=== PATIENT | female | born 1980 | race Hispanic/Latino ===

== ENCOUNTER 2017-05-02 10:21 | Emergency (ER) | payer OTHER ==
[~2017-05-02] VITALS: Ht 157.5 cm; Wt 81.6 kg
[2017-05-02 10:29] VITALS: BP 136/86
--- NOTE | 2017-05-02 11:09 | ED GI/GU/ABDOMINAL COMPLAINT ---
History of Present Illness General Chief Complaint: Abdominal Pain/Flank Pain Stated Complaint: ABD PAIN X 5 MONTHS ON AND OFF Source: patient, family Exam Limitations: no limitations Vital Signs & Intake/Output Vital Signs & Intake/Output Vital Signs Date Time Temp Pulse Resp B/P B/P Pulse O2 O2 Flow FiO2 Mean Ox Delivery Rate 05/02 1137 98 Room Air 05/02 1029 98.3 66 20 136/86 100 Room Air Allergies Coded Allergies: No Known Allergies (05/02/17) Reconcile Medications Ergocalciferol (Vitamin D2) (Vitamin D2) 50,000 UNIT CAPSULE 1 TAB PO DAILY SUPP (Reported) Loratadine/Pseudoephedrine (Claritin-D 24 Hour Tablet) 10 MG-240 MG TAB.ER.24H 1 TAB PO DAILY PRN ALLERGIES (Reported) Omeprazole 20 MG TABLET.DR 1 TAB PO DAILY gastritis Sertraline HCl 100 MG TABLET 1 TAB PO DAILY DEPRESSION (Reported) Triage Note: PT TO ED C/O UPPER ABD PAIN X A FEW MONTHS. WORSE THE LAST 2 WEEKS. C/O N/D, DENIES VOMITING. DENIES S/S. DENIES . STATES THE PAIN IS WORSE IN THE AFTERNOON. POOR APPETITE. Triage Nurses Notes Reviewed? yes LMP (ages 10-50): unknown ? N Is pt currently ? No Onset: Abrupt Duration: week(s): (3-4), changing over time, continues in ED, getting worse Timing: recent history Quality/Severity: cramping, fullness, moderate Severity Numbers: 10 Location: epigastric, right upper quadrant Radiation: no radiation Activities at Onset: eating Prior Abdominal Problems: similar symptoms Sexually Active: Yes Last Time You Were Sexual: less than 2 months ago No Modifying Factors: none Modifying Factors: Worsens With: eating, movement, palpation. Associated Symptoms: abdominal pain, diarrhea, nausea/vomiting HPI: 36-year-old female with past medical history of depression presents complaining of pain in her upper abdomen. Patient reports symptoms first started a few months ago and went away on their own. Over the past few weeks symptoms have been coming and going intermittently gotten much worse in the past 3 days. Patient reports pain is located in the epigastric area and right upper quadrant. Patient reports that when she wakes up in the morning she feels fine symptoms then began to start in the afternoon and go away by night. Pain is worse with eating and she feels that her appetite has been decreased because of the pain. She has been tolerating fluids. She describes the pain as fullness and cramping that is located in the epigastric area and right upper quadrant. She also reports pain in her back. She reports associated nausea without vomiting and nonbloody diarrhea. He has seen her primary care doctor this ordered blood work was patient did not do. She also prescribed an unknown medicine for her stomach which patient took twice without relief. She has taken any other medications for the pain and she denies any known alleviating factors. No hematemesis, melena, bright red blood per rectum, fevers, chest pain, shortness of breath, hemoptysis, sore throat, alcohol use, drug use or any other associated symptoms. (FRANK ESTEVES PA-C) Past History Travel History Traveled to [place] past 21 day No Medical History Any Pertinent Medical History? see below for history EENT: allergies Psychiatric: depression Surgical History Surgical History: none Psychosocial History What is your primary language Tunisian Tobacco Use: Never used ETOH Use: denies use Illicit Drug Use: denies illicit drug use Family History Hx Contributory? No (FRANK ESTEVES PA-C) Review of Systems Review of Systems Constitutional: Reports: no symptoms. EENTM: Reports: no symptoms. Respiratory: Reports: no symptoms. Cardiovascular: Reports: no symptoms. GI: Reports: see HPI, abdominal pain, bloating, diarrhea, nausea. Genitourinary: Reports: no symptoms. Musculoskeletal: Reports: no symptoms. Skin: Reports: no symptoms. Neurological/Psychological: Reports: no symptoms. Hematologic/Endocrine: Reports: no symptoms. Immunologic/Allergic: Reports: no symptoms. All Other Systems: Reviewed and Negative (FRANK ESTEVES PA-C) Physical Exam Physical Exam General Appearance: well developed/nourished, no apparent distress, alert, awake , anxious Head: atraumatic, normal appearance Eyes: Bilateral: normal appearance, PERRL, EOMI, normal inspection. Ears, Nose, Throat, Mouth: hearing grossly normal, moist mucous membrane, Tympanic normal Neck: normal inspection, supple, full range of motion, normal alignment Respiratory: normal breath sounds, chest non-tender, no respiratory distress, lungs clear Cardiovascular: regular rate/rhythm, normal peripheral pulses Peripheral Pulses: 2+ radial (R), 2+ radial (L), 2+ dorsalis pedis (R), 2+ dorsalis pedis (L) Gastrointestinal: normal bowel sounds, soft, no organomegaly, tenderness (ruq and epigastric) Back: normal inspection, normal range of motion, no vertebral tenderness Extremities: normal range of motion Neurologic/Psych: no motor/sensory deficits, awake, alert, oriented x 3, normal gait, normal mood/affect Skin: intact, normal color, warm/dry Core Measures ACS in differential dx? No Severe Sepsis Present: No Septic Shock Present: No (LINN GOSS,FRANK) Progress Differential Diagnosis: biliary colic, cholecystitis, ectopic , gastritis, hepatitis, inflamm bowel dis, kidney stone, pancreatitis, peptic ulcer, PUD/GERD, perforated viscous, SBO, UTI/pyelo Plan of Care: Orders Procedure Date/time Status URINE 05/02 111 Complete URINALYSIS 05/02 1118 Complete LIPASE 05/02 1118 Complete C-REACTIVE PROTEIN 05/02 1118 Complete COMPREHENSIVE METABOLIC PANEL 05/02 1118 Complete CBC WITHOUT DIFFERENTIAL 05/02 1118 Complete AMYLASE 05/02 111 Complete Laboratory Tests 05/02/17 1223: Urine Color YEL, Urine Clarity CLEAR, Urine pH 6.0, Ur Specific [place] 1.010, Urine Protein NEG, Urine Ketones NEG, Urine Nitrite NEG, Urine Bilirubin NEG, Urine Urobilinogen 0.2, Ur Leukocyte Esterase NEG, Ur Microscopic SEDIMENT EXAMINED, Urine RBC 10-15 H, Urine WBC 1-3 H, Ur Epithelial Cells FEW, Urine Hemoglobin MOD H, Urine Glucose NEG, Urine Test NEGATIVE 05/02/17 1132: Anion Gap 13, Estimated GFR > 60, BUN/Creatinine Ratio 16.0, Glucose 95, Calcium 9.4, Total Bilirubin 0.7, AST 22, ALT 29, Alkaline Phosphatase 69, C-Reactive Prot, Quant 0.9, Total Protein 7.8, Albumin 4.5, Globulin 3.3, Albumin/Globulin Ratio 1.4, Amylase 50, Lipase 71, CBC w Diff NO MAN DIFF REQ, RBC 5.07, MCV 80.1 L, MCH 26.2 L, RDW 13.1, MPV 7.9, Gran % 79.3 H, Lymphocytes % 14.3 L, Monocytes % 5.0, Eosinophils % 1.3, Basophils % 0.1, Absolute Granulocytes 9.0 H, Absolute Lymphocytes 1.6, Absolute Monocytes 0.6, Absolute Eosinophils 0.2, Absolute Basophils 0, PUBS MCHC 32.8 L 11:25 AM: Patient seen and evaluated. She has pain with palpation in the epigastric area and right upper quadrant. Ultrasound is currently not here she will have a CT scan with contrast of the abdomen to rule out gallstones, cholecystitis or pancreatitis. We'll also get basic blood work urinary . Patient will be given a liter normal saline GI cocktail and IV Protonix. 12:15 PM: Patient is feeling much better after GI cocktail IV fluids and IV Protonix. This suggests a acid reflux or gastritis etiology. We'll follow up on blood work and CT of the abdomen. His lungs are to comes back normal patient will be a little be discharged home with omeprazole. 1:45 PM: CT of the abdomen with contrast shows gallstones but no evidence of cholecystitis.. No signs of choledocholithiasis. LFTs are within normal limits. Alkaline phosphatase is within normal limits. Afebrile and currently asymptomatic. She denies any current abdominal pain. Her right upper quadrant is currently nontender to palpation she is afebrile. Patient will be given a referral to a general surgeon for further evaluation. She'll be given a prescription for omeprazole to use as needed for acid reflux/gastritis. Discussed all results of today's visit with patient. Patient is in agreement with the plan. (LINN GOSS,FRANK) Diagnostic Imaging: Viewed by Me: CT Scan. Initial ED EKG: none Comments: PATIENT: KRISTOPHER ANG PRESENT AGE: 36 PATIENT ACCOUNT NO: [id number] : 80 LOCATION: [facility] ORDERING PHYSICIAN: FRANK ESTEVES PA-C SERVICE DATE: 05/02/17 EXAM TYPE: CAT - CT ABD W IV CONTRAST EXAMINATION: CT ABDOMEN WITH CONTRAST CLINICAL INFORMATION: CHOLECYSTITIS, STONES, PANCREATITIS. EPIGASTRIC AND RUQ PAIN< COMPARISON: None. TECHNIQUE: Multidetector volumetric imaging was performed from the lung bases to the iliac crests following the uneventful administration of: Oral contrast: No Intravenous contrast: 95 cc Optiray 320 Sagittal and coronal reformatted images were obtained on the technologist workstation. FINDINGS: LUNG BASES: The visualized lung bases are unremarkable. LIVER, GALLBLADDER, AND BILIARY TREE: Liver may be subtly hypoattenuating relative to the spleen can be seen in the setting of diffuse hepatic steatosis. No focal liver lesion seen. There are multiple hyperdensities seen in the posterior aspect of the fundus of the gallbladder, more likely tiny stones than gallbladder wall calcification. The common bile duct is prominent, 6 mm in diameter but not frankly dilated. No definite choledocholithiasis. No intrahepatic biliary ductal dilatation. PANCREAS: Normal; no mass or surrounding fluid. SPLEEN: Normal size. No focal lesion. ADRENAL GLANDS: Normal; no mass. KIDNEYS AND URETERS: The kidneys are normal in size, shape, and attenuation. No hydronephrosis, hydroureter, or calculi. GASTROINTESTINAL TRACT: Stomach and small bowel non-dilated. No colonic wall thickening or pericolonic inflammatory changes. ABDOMINAL WALL: Small fat-containing umbilical hernia. LYMPHOVASCULAR STRUCTURES: No lymphadenopathy. The aorta is unremarkable. OSSEOUS STRUCTURES: No acute or suspicious osseous abnormality. IMPRESSION: Likely gallstone seen within a moderately distended gallbladder. No pericholecystic fluid to suggest acute cholecystitis. The common bile duct is prominent, up to 6 mm in diameter but not frankly dilated. No definite choledocholithiasis. No intrahepatic biliary ductal dilatation. If there is evidence of biliary obstruction by liver function tests, consider further evaluation with MRCP or ERCP. Normal appearance of the pancreas. The pancreas can have a normal CT appearance in cases of mild pancreatitis by serum enzymes. Possible diffuse hepatic steatosis. DICTATED BY: ERNESTINA MOCK MD DATE/TIME DICTATED:05/02/171336 BAD CLOTH CHECKER:BRENNAN DATE/TIME TRANSCRIBED:05/02/171336 CONFIDENTIAL, DO NOT COPY WITHOUT APPROPRIATE AUTHORIZATION. <Electronically signed in Other Vendor System> SIGNED BY: ERNESTINA MOCK MD [id number] (FRANK ESTEVES PA-C) Departure Departure Disposition: HOME OR SELF CARE Condition: Stable Clinical Impression Primary Impression: Abdominal pain Qualifiers: Abdominal location: right upper quadrant Qualified Code: R10.11 - Right upper quadrant pain Secondary Impressions: Cholelithiases Qualifiers: Cholelithiasis location: gallbladder Cholecystitis presence: without cholecystitis Biliary obstruction: without biliary obstruction Qualified Code: K80.20 - Calculus of gallbladder without cholecystitis without obstruction Referrals: PAT BORDEN,DEEP Herzog UNKNOWN (PCP/Family) Additional Instructions: Rest and drink plenty of fluids. Use omeprazole as directed. Avoid spicy foods , alcohol, caffeine, large meals, and greasy fatty foods. Make a follow-up for with your primary care doctor and a general surgeon for further evaluation of gallstones. Return to the emergency department with worsening pain, fever, unable tolerate fluids or any other concerns. Review of results of today's visit with your primary care doctor. Please go over all results of today's visit with your primary care doctor. Contact your primary care doctor to let them know you were here in the emergency room. There may be nonspecific findings which may not be related to your visit today here in the emergency room but may require further evaluation and chronic monitoring by your primary care doctor. If you had a laceration today the chance of foreign body always remains. You should follow-up with your primary care doctor for recheck in 3-5 days for a wound check. If you had an x-ray done there is a chance that a fracture could have been missed on initial read and you should follow-up with your primary care doctor for repeat x-rays if symptoms persist. If your blood pressure was elevated here in the emergency room please have rechecked by her primary care doctor within the next 48 hours by your primary care doctor. If you were prescribed a narcotic here in the emergency room or any type of controlled substances you're not allowed to drive while taking this medication or operate any type of heavy machinery. Narcotics can make you feel lightheaded dizziness nausea and can cause constipation. You may need to metal pickling equipment operator a stool softener. Thank you for choosing [facility] emergency room. Please return to the emergency room immediately if you have any other concerns worsening of symptoms. Departure Forms: Customer Survey General Discharge Information Prescriptions: Current Visit Scripts Omeprazole 1 TAB PO DAILY #30 TAB (FRANK ESTEVES PA-C) PA/MICA PLATE LAYER Co-Sign Statement Statement: ED Attending supervision documentation- [] I saw and evaluated the patient. I have also reviewed all the pertinent lab results and diagnostic results. I agree with the findings and the plan of care as documented in the PA's/MICA PLATE LAYER's documentation. [X] I have reviewed the ED Record and agree with the PA's/MICA PLATE LAYER's documentation. [] Additions or exceptions (if any) to the PAs/MICA PLATE LAYER's note and plan are summarized below: [] (CHRISTOPHER BORDEN,CLARY Jerez)
[2017-05-02 11:52] LABS: ABSOLUTE BASOPHIL COUNT 0 /CUMM (0.0-0.2); ABSOLUTE EOSINOPHIL COUNT 0.2 /CUMM (0.0-0.7); ABSOLUTE LYMPH COUNT 1.6 /CUMM (1.2-3.4); ABSOLUTE MONOCYTE COUNT 0.6 /CUMM (0.10-0.60); BASOPHIL % 0.1 % (0.0-2.0); EOSINOPHIL % 1.3 % (0-5); GRANULOCYTE % 79.3 % (42.2-75.2); HEMATOCRIT 40.6 % (37-47); MEAN CORPUSCULAR HGB 26.2 PG (27.0-31.0); MEAN CORPUSCULAR HGB CONC 32.8 G/DL (33.0-37.0); MEAN CORPUSCULAR VOLUME 80.1 FL (81.0-99.0); MEAN PLATELET VOLUME 7.9 FL (7.4-10.4); PLATELET COUNT 373 /CUMM (130-400); RBC DISTRIBUTION WIDTH 13.1 % (11.5-14.5); RED BLOOD CELL CT 5.07 /CUMM (4.20-5.40); WHITE BLOOD CELL COUNT 11.3 /CUMM (4.8-10.8)
[2017-05-02] MEDS ORDERED: CLARITIN-D 241 EACH PO (13:32)
[2017-05-02] MEDS ORDERED: SERTRALINE HCL100 MG PO (13:32)
[2017-05-02] MEDS ORDERED: VITAMIN D250000 UNIT PO (13:32)
--- NOTE | 2017-05-02 13:44 | CT SCAN REPORT ---
EXAMINATION: CT ABDOMEN WITH CONTRAST CLINICAL INFORMATION: CHOLECYSTITIS, STONES, PANCREATITIS. EPIGASTRIC AND RUQ PAIN< COMPARISON: None. TECHNIQUE: Multidetector volumetric imaging was performed from the lung bases to the iliac crests following the uneventful administration of: Oral contrast: No Intravenous contrast: 95 cc Optiray 320 Sagittal and coronal reformatted images were obtained on the technologist workstation. FINDINGS: LUNG BASES: The visualized lung bases are unremarkable. LIVER, GALLBLADDER, AND BILIARY TREE: Liver may be subtly hypoattenuating relative to the spleen can be seen in the setting of diffuse hepatic steatosis. No focal liver lesion seen. There are multiple hyperdensities seen in the posterior aspect of the fundus of the gallbladder, more likely tiny stones than gallbladder wall calcification. The common bile duct is prominent, 6 mm in diameter but not frankly dilated. No definite choledocholithiasis. No intrahepatic biliary ductal dilatation. PANCREAS: Normal; no mass or surrounding fluid. SPLEEN: Normal size. No focal lesion. ADRENAL GLANDS: Normal; no mass. KIDNEYS AND URETERS: The kidneys are normal in size, shape, and attenuation. No hydronephrosis, hydroureter, or calculi. GASTROINTESTINAL TRACT: Stomach and small bowel non-dilated. No colonic wall thickening or pericolonic inflammatory changes. ABDOMINAL WALL: Small fat-containing umbilical hernia. LYMPHOVASCULAR STRUCTURES: No lymphadenopathy. The aorta is unremarkable. OSSEOUS STRUCTURES: No acute or suspicious osseous abnormality. IMPRESSION: Likely gallstone seen within a moderately distended gallbladder. No pericholecystic fluid to suggest acute cholecystitis. The common bile duct is prominent, up to 6 mm in diameter but not frankly dilated. No definite choledocholithiasis. No intrahepatic biliary ductal dilatation. If there is evidence of biliary obstruction by liver function tests, consider further evaluation with MRCP or ERCP. Normal appearance of the pancreas. The pancreas can have a normal CT appearance in cases of mild pancreatitis by serum enzymes. Possible diffuse hepatic steatosis.
[2017-05-02] MEDS ORDERED: OMEPRAZOLE20 M3 PO (13:53)
== END 2017-05-02 14:00 ==
LOC: ERH 10:21
PROVIDERS: Physician Assistant Medical
DX: K80.20 Calculus of gallbladder without cholecystitis without obstruction (principal)
CPT/HCPCS: 81001; 81025; 96374

== ENCOUNTER 2017-05-08 21:33 | Inpatient (IN) | payer OTHER ==
[~2017-05-08] VITALS: Ht 66 cm; Wt 81.6 kg
[~2017-05-08 21:33] MED LIST: CLARITIN-D 241 EACH PO; OMEPRAZOLE20 M3 PO; SERTRALINE HCL100 MG PO; VITAMIN D250000 UNIT PO
--- NOTE | 2017-05-08 23:16 | ED GI/GU/ABDOMINAL COMPLAINT ---
History of Present Illness General Chief Complaint: Abdominal Pain/Flank Pain Stated Complaint: ABD PAIN Source: patient Exam Limitations: no limitations Vital Signs & Intake/Output Vital Signs & Intake/Output Vital Signs Date Time Temp Pulse Resp B/P B/P Pulse O2 O2 Flow FiO2 Mean Ox Delivery Rate 05/09 1433 98.0 58 20 122/80 98 Room Air 05/09 0414 97.8 68 20 130/96 97 Room Air 05/09 0400 97 Room Air 05/09 0259 98.3 76 20 106/93 98 Room Air 05/08 2310 98 Room Air 05/08 2157 98.0 71 20 122/75 97 Room Air ED Intake and Output 05/09 0000 05/08 1200 Intake Total Output Total Balance Patient 180 lb Weight Weight Reported by Patient Measurement Method Allergies Coded Allergies: No Known Allergies (05/02/17) Reconcile Medications Ergocalciferol (Vitamin D2) (Vitamin D2) 50,000 UNIT CAPSULE 1 TAB PO DAILY SUPP (Reported) Loratadine/Pseudoephedrine (Claritin-D 24 Hour Tablet) 10 MG-240 MG TAB.ER.24H 1 TAB PO DAILY PRN ALLERGIES (Reported) Omeprazole 20 MG TABLET.DR 1 TAB PO DAILY gastritis Sertraline HCl 100 MG TABLET 1 TAB PO DAILY DEPRESSION (Reported) Triage Note: PT FROM HOME C/O GALLSTONE "FLARE UP". PT STATES SHE WAS SEEN HERE ON AND A CT REVEALED GALLSTONES, PT STATES N/V/D X MULTIPLE EPISODES SINCE AND TODAY AROUND 1600 IT BECAME WORSE. Triage Nurses Notes Reviewed? yes ? N Is pt currently ? No Duration: getting worse Quality/Severity: sharpness, severe, stabbing Severity Numbers: 7 Location: epigastric, right upper quadrant Radiation: no radiation Activities at Onset: none HPI: Patient is a 37-year-old female with a past medical history of depression who presents emergency room with concerns of worsening abdominal pain. Patient did present to the emergency room at [facility] on May 02 for similar symptoms where she states that she's had pain on and off to the epigastric and right upper quadrant region for approximately 4-5 months. Patient received blood work in the emergency room with unremarkable findings and CT scan with no acute findings. Patient states that in the past week her symptoms worsened abdominal pain and multiple episodes of nonbloody nonbilious emesis and patient has been unable tolerate anything by mouth the last 24 hours. Denies any NSAID use or alcohol use. (COLLIN ALEXANDER) Past History Travel History Traveled to [place] past 21 day No Medical History Any Pertinent Medical History? see below for history EENT: allergies Renal: GALLSTONES Psychiatric: depression Surgical History Surgical History: none Psychosocial History What is your primary language Bahamian Tobacco Use: Never used ETOH Use: denies use Illicit Drug Use: denies illicit drug use Family History Hx Contributory? No (COLLIN ALEXANDER) Review of Systems Review of Systems Constitutional: Reports: no symptoms. EENTM: Reports: no symptoms. Respiratory: Reports: no symptoms. Cardiovascular: Reports: no symptoms. GI: Reports: see HPI, abdominal pain. Genitourinary: Reports: no symptoms. Musculoskeletal: Reports: no symptoms. Skin: Reports: no symptoms. Neurological/Psychological: Reports: no symptoms. Hematologic/Endocrine: Reports: no symptoms. Immunologic/Allergic: Reports: no symptoms. All Other Systems: Reviewed and Negative (COLLIN ALEXANDER) Physical Exam Physical Exam General Appearance: mild distress Head: atraumatic Eyes: Bilateral: normal appearance, PERRL, EOMI. Ears, Nose, Throat, Mouth: hearing grossly normal Neck: normal inspection, full range of motion Respiratory: normal breath sounds, chest non-tender, no respiratory distress Cardiovascular: regular rate/rhythm Gastrointestinal: normal bowel sounds, soft, tenderness (RUQ/EPIGASTRIC) Back: normal inspection Extremities: normal range of motion Neurologic/Psych: no motor/sensory deficits Core Measures ACS in differential dx? No Severe Sepsis Present: No Septic Shock Present: No (COLLIN ALEXANDER) Progress Differential Diagnosis: AAA, AMI, appendicitis, biliary colic, bowel obstruction , colon cancer, cholecystitis, diverticulitis, ectopic , endometritis, esophageal varices, gastritis, hepatitis, hernia, hemorrhoids, ischemic bowel, inflamm bowel dis, intrauterine , kidney stone, [place] tear, ovarian cyst, ovarian torsion, pancreatitis, PID/cervicitis, peptic ulcer, PUD/ GERD, perforated viscous, SBO, threatened AB, UTI/pyelo Plan of Care: Orders Procedure Date/time Status Nothing by Mouth 05/10 B Active PROTHROMBIN TIME 05/10 600 Active LIPASE 05/10 600 Active HEPATIC FUNCTION PANEL 05/10 600 Active CBC WITHOUT DIFFERENTIAL 05/10 600 Active BASIC ELECTROLYTES PLUS BUN&CR 07/12 0600 Active Clear Liquid Diet 05/09 L Complete Full Liquid Diet 05/09 D Complete Nothing by Mouth 05/09 B Complete PROTHROMBIN TIME 05/09 0835 Complete HEPATIC FUNCTION PANEL 05/09 0835 Complete LIPID PANEL 05/09 06 Complete LIPASE 05/09 06 Complete CBC WITHOUT DIFFERENTIAL 05/09 06 Complete BASIC ELECTROLYTES PLUS BUN&CR 05/09 0600 Complete AMYLASE 05/09 0600 Complete Vital Signs 05/09 0422 Active Teach/Educate 05/09 042 Active Pain Treatment and Response 05/09 042 Active Nutritional Intake, Monitor 05/09 042 Active Isolation 05/09 042 Active Intake & Output 05/09 042 Active Patient Care Conference 05/09 042 Active Activity/Ambulation 05/09 0422 Active Pathway - chart 05/09 0259 Active Patient Data 05/09 0259 Active Code Status 05/09 0259 Active Patient Data 05/09 0228 Active Admit to inpatient 05/09 0128 Active House Staff 05/09 UNK Active VTE Mechanical Prophylaxis 05/09 UNK Active Vital Signs 05/09 UNK Active Nursing Misc 05/09 UNK Active MRI-ABDOMEN 05/09 UNK Active LIPASE 05/08 2315 Complete DIRECT BILIRUBIN 05/08 2315 Complete COMPREHENSIVE METABOLIC PANEL 05/08 2315 Complete CBC WITHOUT DIFFERENTIAL 05/08 2315 Complete AMYLASE 05/08 2315 Complete Intake & Output 05/08 2310 Active URINE 05/08 2228 Complete URINALYSIS 05/08 2228 Complete Current Medications Sig/Willem Start time Last Medication Dose Stop Time Status Admin Acetaminophen 1,000 MG Q6P PRN 05/09 1515 AC (Ofirmev) N/A 1 UNIT (No Carrier) Morphine Sulfate 2 MG Q6P PRN 05/09 1330 AC (Morphine) Enoxaparin Sodium 40 MG DAILY 05/09 1000 AC 05/09 (Lovenox) 1105 Lactated Ringer's 1,000 ML .Q10H 05/09 0845 AC 05/09 (Lactated Ringers) 05/10 0800 1124 Laboratory Tests 05/09/17 1025: Total Bilirubin 3.0 H, Direct Bilirubin 2.1 H, AST 159 H, ALT 445 H, Alkaline Phosphatase 147 H, Total Protein 6.3, Albumin 3.8, PT 11.3, INR 1.08 05/09/17 0700: Anion Gap 12, Estimated GFR > 60, BUN/Creatinine Ratio 16.0, Triglycerides 85, Cholesterol 153, LDL Cholesterol, Calc 85, HDL Cholesterol 51, Cholesterol/HDL Ratio 3, Amylase 687 H, Lipase 6106 H, CBC w Diff NO MAN DIFF REQ, RBC 4.67, MCV 81.3, MCH 26.6 L, RDW 13.7, MPV 8.1, Gran % 63.9, Lymphocytes % 27.1, Monocytes % 7.3, Eosinophils % 1.3, Basophils % 0.4, Absolute Granulocytes 7.0 H, Absolute Lymphocytes 3.0, Absolute Monocytes 0.8 H, Absolute Eosinophils 0.1 , Absolute Basophils 0, PUBS MCHC 32.7 L 05/08/17 2326: Anion Gap 13, Estimated GFR > 60, BUN/Creatinine Ratio 20.0, Glucose 119 H, Calcium 9.5, Total Bilirubin 2.6 H, Direct Bilirubin 1.8 H, AST 230 H, ALT 572 H, Alkaline Phosphatase 194 H, Total Protein 8.2, Albumin 4.7, Globulin 3.5, Albumin/Globulin Ratio 1.3, Amylase 543 H, Lipase 9721 H, CBC w Diff NO MAN DIFF REQ, RBC 5.06, MCV 80.2 L, MCH 26.0 L, RDW 13.5, MPV 7.9, Gran % 74.2 , Lymphocytes % 17.4 L, Monocytes % 7.0, Eosinophils % 1.2, Basophils % 0.2, Absolute Granulocytes 8.7 H, Absolute Lymphocytes 2.1, Absolute Monocytes 0.8 H, Absolute Eosinophils 0.1, Absolute Basophils 0, PUBS MCHC 32.4 L 05/08/17 2250: Urinalysis MOD H, Urine Color YEL, Urine Clarity HAZY H, Urine pH 6.0, Ur Specific [place] 1.025, Urine Protein TRACE H, Urine Ketones 15 H, Urine Nitrite NEG, Urine Bilirubin NEG@ICTO, Urine Urobilinogen 2.0 H, Ur Leukocyte Esterase NEG, Ur Microscopic SEDIMENT EXAMINED, Urine RBC 1-3, Urine WBC 1-3 H, Ur Epithelial Cells RARE, Urine Hemoglobin MOD H, Urine Glucose NEG, Urine Test NEGATIVE Patient has concerns of gallstone pancreatitis. Patient was afebrile no leukocytosis. Discussed admission with Dr. Clifford who was aware patient was administered prophylactic Unasyn Patient was placed nothing by mouth. After morphine was administered patient had significant resolution of pain. Denies any current nausea after IV Zofran was administered. (ALFRED GOODEN,COLLIN) Diagnostic Imaging: Viewed by Me: CT Scan. Radiology Impression: no acute abnormality Initial ED EKG: none Comments: PATIENT: KRISTOPHER ANG PRESENT AGE: 37 PATIENT ACCOUNT NO: [id number] : 80 LOCATION: ER ORDERING PHYSICIAN: COLLIN GOODEN SERVICE DATE: 05/09/17 EXAM TYPE: CAT - CT ABD & PELVIS W IV CONTRAST EXAMINATION: CT ABDOMEN AND PELVIS WITH CONTRAST CLINICAL INFORMATION: Gallstone pancreatitis COMPARISON: 05/02/2017 TECHNIQUE: Multidetector volumetric imaging was performed of the abdomen and pelvis before and after the IV administration of 95 mL of Optiray 320 intravenous contrast. Sagittal and coronal reformatted images were obtained on the technologist's workstation. DLP: 476 mGy-cm FINDINGS: LUNG BASES: The visualized lung bases are unremarkable. LIVER, GALLBLADDER, AND BILIARY TREE: The liver is normal in size, shape, and attenuation. No focal hepatic lesion or biliary ductal dilatation is present. The gallbladder is normally distended. Gallstones are seen within the gallbladder lumen. No gallbladder wall thickening or adjacent inflammation noted. The common bile duct is prominent, measuring 0.8 cm in diameter. No definite filling defects seen. PANCREAS: Unremarkable. SPLEEN: Unremarkable. ADRENAL GLANDS: Unremarkable. KIDNEYS AND URETERS: The kidneys are normal in size, shape, and attenuation. No hydronephrosis, hydroureter, or calculi seen. No perinephric stranding. BLADDER: Unremarkable. GASTROINTESTINAL TRACT: The stomach and small bowel are unremarkable. No dilated loops of bowel or evidence of obstruction. Normal appendix. No colonic wall thickening or inflammatory change. No free air or free fluid. ABDOMINAL WALL: No significant hernia is appreciated. LYMPH NODES: Normal. VASCULAR: Unremarkable. PELVIC VISCERA: An IUD is in place. No adnexal mass. OSSEOUS STRUCTURES: No acute or suspicious osseous abnormality. IMPRESSION: Cholelithiasis without evidence for acute cholecystitis. There is mild dilatation of the common bile duct without filling defects seen. Unremarkable appearance of the pancreas. DICTATED BY: OMAR BORDEN,LAMONTE DATE/TIME DICTATED:05/09/17201 BILL OF MATERIALS CLERK:BRENNAN DATE/TIME TRANSCRIBED:05/09/17201 (COLLIN ALEXANDER) Departure Departure Disposition: STILL A PATIENT Condition: Guarded Clinical Impression Primary Impression: Gallstone pancreatitis Referrals: UNKNOWN (PCP/Family) Departure Forms: Customer Survey General Discharge Information Admission Note Spoke With: TOSHA HARVEY MD Documentation of Exam: Documentation of any treatments & extenuating circumstances including Concerns Regarding Discharge (functional status, medication knowledge or non-compliance, living conditions, etc.) that warrant an admission rather than observation: [ Discussed admission with who agrees with general medicine admission for concerns of gallstone pancreatitis which patient requires repeat labs, IV pain management IV antinausea medication, right upper quadrant ultrasound, gastroenterology consultation surgical consultation. Outpatient treatment at this time would be medically harmful] (COLLIN ALEXANDER) PA/BREAKER OFF Co-Sign Statement Statement: ED Attending supervision documentation- [] I saw and evaluated the patient. I have also reviewed all the pertinent lab results and diagnostic results. I agree with the findings and the plan of care as documented in the PA's/BREAKER OFF's documentation. [X] I have reviewed the ED Record and agree with the PA's/BREAKER OFF's documentation. [] Additions or exceptions (if any) to the PAs/BREAKER OFF's note and plan are summarized below: [] (DINA BORDEN,ARPIT)
[2017-05-08 23:32] LABS: ABSOLUTE BASOPHIL COUNT 0 /CUMM (0.0-0.2); ABSOLUTE EOSINOPHIL COUNT 0.1 /CUMM (0.0-0.7); ABSOLUTE GRANULOCYTE CT 8.7 /CUMM (1.4-6.5); ABSOLUTE LYMPH COUNT 2.1 /CUMM (1.2-3.4); ABSOLUTE MONOCYTE COUNT 0.8 /CUMM (0.10-0.60); BASOPHIL % 0.2 % (0.0-2.0); EOSINOPHIL % 1.2 % (0-5); GRANULOCYTE % 74.2 % (42.2-75.2); HEMATOCRIT 40.6 % (37-47); MEAN CORPUSCULAR HGB CONC 32.4 G/DL (33.0-37.0); MEAN CORPUSCULAR VOLUME 80.2 FL (81.0-99.0); MEAN PLATELET VOLUME 7.9 FL (7.4-10.4); PLATELET COUNT 409 /CUMM (130-400); RBC DISTRIBUTION WIDTH 13.5 % (11.5-14.5); RED BLOOD CELL CT 5.06 /CUMM (4.20-5.40); WHITE BLOOD CELL COUNT 11.8 /CUMM (4.8-10.8)
--- NOTE | 2017-05-09 02:07 | CT SCAN REPORT ---
EXAMINATION: CT ABDOMEN AND PELVIS WITH CONTRAST CLINICAL INFORMATION: Gallstone pancreatitis COMPARISON: 05/02/2017 TECHNIQUE: Multidetector volumetric imaging was performed of the abdomen and pelvis before and after the IV administration of 95 mL of Optiray 320 intravenous contrast. Sagittal and coronal reformatted images were obtained on the technologist's workstation. DLP: 476 mGy-cm FINDINGS: LUNG BASES: The visualized lung bases are unremarkable. LIVER, GALLBLADDER, AND BILIARY TREE: The liver is normal in size, shape, and attenuation. No focal hepatic lesion or biliary ductal dilatation is present. The gallbladder is normally distended. Gallstones are seen within the gallbladder lumen. No gallbladder wall thickening or adjacent inflammation noted. The common bile duct is prominent, measuring 0.8 cm in diameter. No definite filling defects seen. PANCREAS: Unremarkable. SPLEEN: Unremarkable. ADRENAL GLANDS: Unremarkable. KIDNEYS AND URETERS: The kidneys are normal in size, shape, and attenuation. No hydronephrosis, hydroureter, or calculi seen. No perinephric stranding. BLADDER: Unremarkable. GASTROINTESTINAL TRACT: The stomach and small bowel are unremarkable. No dilated loops of bowel or evidence of obstruction. Normal appendix. No colonic wall thickening or inflammatory change. No free air or free fluid. ABDOMINAL WALL: No significant hernia is appreciated. LYMPH NODES: Normal. VASCULAR: Unremarkable. PELVIC VISCERA: An IUD is in place. No adnexal mass. OSSEOUS STRUCTURES: No acute or suspicious osseous abnormality. IMPRESSION: Cholelithiasis without evidence for acute cholecystitis. There is mild dilatation of the common bile duct without filling defects seen. Unremarkable appearance of the pancreas.
--- NOTE | 2017-05-09 02:19 | History & Physical ---
SHIVA BORDEN,[facility] 05/09/17 0218: General Information and HPI MD Statement: I have seen and personally examined KRISTOPHER PITT and documented this H&P. The patient is a 37 year old F who presented with a patient stated chief complaint of [abdominal pain]. Source of Information: patient Exam Limitations: no limitations History of Present Illness: The patient is a 37-year-old female with past medical history of gastritis, depression, who was last seen in May 02 for similar complaints. At that time the abdominal CT showed a likely gallstone. She was prescribed omeprazole during that last ED visit. The patient states she has had 4-5 months of epigastric and right flank pain. She states today she experienced a sharp pain in her epigastric and right upper quadrant from 4 PM at work. She states the pain was a 10 out of 10 at the time and is now currently 4 out of 10. She states that the pain began in the epigastric region and radiated down to her right upper quadrant. She took some ibuprofen without any improvement. She was then brought into the hospital by her . She states the pain prevents her from taking full breaths. She has also noticed some chills during this time. She states she has had 2 episodes vomiting today. Her last meal was lunch yesterday, when she had eaten a Caesar salad. She denies any fevers, chest pain , or dysuria. Allergies/Medications Allergies: Coded Allergies: No Known Allergies (05/02/17) Home Med list Ergocalciferol (Vitamin D2) (Vitamin D2) 50,000 UNIT CAPSULE 1 TAB PO DAILY SUPP (Reported) Loratadine/Pseudoephedrine (Claritin-D 24 Hour Tablet) 10 MG-240 MG TAB.ER.24H 1 TAB PO DAILY PRN ALLERGIES (Reported) Omeprazole 20 MG TABLET.DR 1 TAB PO DAILY gastritis Sertraline HCl 100 MG TABLET 1 TAB PO DAILY DEPRESSION (Reported) Past History Travel History Traveled to [place] past 21 day No Medical History EENT: allergies Gastrointestinal: gallstone Psychiatric: depression Surgical History Surgical History: Past Family/Social History Psychosocial History Smoking Status: Never Smoked ETOH Use: denies use Illicit Drug Use: denies illicit drug use Review of Systems Review of Systems Constitutional: Reports: chills. Denies: fever. Cardiovascular: Denies: chest pain. Respiratory: Denies: short of breath. GI: Reports: abdominal pain. Genitourinary: Denies: dysuria. Exam & Diagnostic Data Last 24 Hrs of Vital Signs/I&O Vital Signs Date Time Temp Pulse Resp B/P B/P Pulse O2 O2 Flow FiO2 Mean Ox Delivery Rate 05/09 0414 97.8 68 20 130/96 97 Room Air 05/09 0259 98.3 76 20 106/93 98 Room Air 05/08 2310 98 Room Air 05/08 2157 98.0 71 20 122/75 97 Room Air Intake & Output 05/09 0800 05/09 0000 05/08 1600 Intake Total Output Total Balance Patient 180 lb Weight Weight Reported by Patient Measurement Method Physical Exam General Appearance Alert, Oriented X3, Cooperative, Mild Distress Skin no jaundice HEENT Atraumatic, PERRLA, EOMI Neck Supple, no treacheal deviation, tenderness or lymphadenopathy Cardiovascular Regular Rate, Normal S1, Normal S2, No Murmurs Lungs Clear to Auscultation, Normal Air Movement Abdomen Normal Bowel Sounds, Soft, muprhy sign +, no epigastric tenderness, patient states that the pain usually radiates around her epigastric region into her right upper quadrant Neurological Normal Speech Extremities No Edema, Normal Pulses Diagnostic Data Other Results CT ABD: IMPRESSION: Cholelithiasis without evidence for acute cholecystitis. There is mild dilatation of the common bile duct without filling defects seen. Unremarkable appearance of the pancreas. Assessment/Plan Assessment: The patient is a 37-year-old female with past medical history of gastritis, depression, who presents for epigastric and right upper quadrant pain found to have gallstones CT and elevated AST 230, ALT 572, ALP 194, amylase 543, and lipase 9721 most likely pancreatitis secondary to gallstone. As Ranked By This Provider Problem List: 1. Pancreatitis Assessment/Plan The patient is a 37-year-old female with past medical history of gastritis, depression, who presents for epigastric and right upper quadrant pain found to have gallstones CT and elevated AST 230, ALT 572, ALP 194, amylase 543, and lipase 9721 most likely pancreatitis secondary to gallstone. She has been complaining of this pain for the past 4-5 months. We will hold her NPO and begin pain management. We will recheck her CPK, lipase, amylase. We will order right upper quadrant ultrasound and place a GI consult. Other causes of her pancreatitis could be idiopathic, autoimmune, or her medicines. -f/u att note -f/u cbc, lipid panel -f/u lipase, amylase, -f/u RUQ US -f/u GI Consult 2. DVT prophylaxis Assessment/Plan LOVENOX 3. Full code status Assessment/Plan FULL CODE Core Measures/Miscellaneous Acute Coronary Syndrome ACS Diagnosis: No Cerebrovascular Accident CVA/TIA Diagnosis: No Congestive Heart Failure CHF Diagnosis: No VTE (View Protocol) VTE Risk Factors: [facility] prophylaxis d/t: No contraindications No VTE Pharm Prophylaxis d/t: No contraindications VTE Diagnosis: No VTE Type: NONE VTE Confirmed by (Test): NONE Sepsis (View Protocol) Severe Sepsis Present: No Septic Shock Septic Shock Present: No Miscellaneous Documentation Attending Case Discussed With: TOSHA HARVEY MD Primary Care Physician: UNKNOWN Level of Patient Care: General Medicine TOSHA HARVEY 05/09/17 0444: Attending MD Review Statement Attending Statement Attending MD Statement: examined this patient, discuss w/resident/PA/DIRECTOR NEWS, agreed w/resident/PA/DIRECTOR NEWS, discussed with family, reviewed EMR data (avail), reviewed images, amended to note Attending Assessment/Plan: CC: Abdominal pain PMH: None Patient came to ER with very severe sharp epigastric pain started today, nonradiating, associated with nausea and a few episodes of vomiting. Patient had similar but less severe pain on May 02 when she came to ER and was investigated with CT scan. Last few years patient has been getting on and off pain in the right upper quadrant, usually relieving on by itself, patient not sure about association with the fatty food Vitals: Afebrile, HR 70s, RR 20, blood pressure 122/75, saturating well on room air. On exam: A O 3, cooperative, no acute distress, neck supple, JVD normal, no lymphadenopathy, mucosa dry, no focal neurological deficit, no dependent edema, no obvious skin rashes or inflammation CVS: S1-S2, RRR. RS: Clear to auscultate bilaterally. Abdomen: Epigastric tenderness, Dia's sign positive, no guarding or rigidity, bowel sounds present. Labs: WBC 11.8, hemoglobin 13.2, hematocrit 40.6, platelet 409, BUN 12, glucose 119, total bilirubin 2.6, direct bilirubin 1.8, AST 2:30, ALT 572, alkaline phosphatase 194, lipase 9721 UA: Trace protein, 15 ketones, urobilinogen CT abdomen and pelvis Cholelithiasis without evidence for acute cholecystitis. There is mild dilatation of the common bile duct without filling defects seen. Unremarkable appearance of the pancreas. A and P 37-year-old female with past medical history suggestive of recurrent abdominal pain probably biliary colic versus GERD, came to ER for worsening epigastric pain. Patient has epigastric tenderness, Dia's sign positive, hemodynamically stable. Labs show elevated lipase suggestive of pancreatitis, also her bilirubin , AST, ALT, alkaline phosphatase is significantly elevated as compared to May 02 labs. She has mild leukocytosis. CT abdomen does not show any evidence of cholecystitis. Drinks alcohol very socially, last drink 3 weeks back. She does not have any significant fever or leukocytosis we will hold off antibiotics for now as no evidence of cholangitis + Gallstone pancreatitis + Cholelithiasis rule out choledocholithiasis - Admit to general medicine - Continue aggressive hydration with normal saline already contacted at 200 mL per hour - Nothing by mouth except ice chips - Obtain lipid panel - Right upper quadrant ultrasound - GI consult in a.m. ?ERCP - Adequate pain control - Patient would need cholecystectomy before discharge - Trend CBC BMP and LFT in a.m. - DVT prophylaxis DEYANIRA BORDEN,[facility] 05/09/17 0515: Core Measures/Miscellaneous Acute Coronary Syndrome ACS Diagnosis: No Cerebrovascular Accident CVA/TIA Diagnosis: No Congestive Heart Failure CHF Diagnosis: No VTE (View Protocol) VTE Risk Factors: Acute medical illness [facility] VTE prophylaxis d/t: No contraindications No VTE Pharm Prophylaxis d/t: No contraindications VTE Diagnosis: No VTE Type: NONE VTE Confirmed by (Test): NONE Miscellaneous Documentation Attending Case Discussed With: TOSHA HARVEY MD Primary Care Physician: UNKNOWN Patient sees these Specialists NA Level of Patient Care: General Medicine Resident Review Statement Resident Statement: examined this patient, discussed with internet designer, agreed with internet designer Other Findings: Ms Pitt is a pleasant 37-year-old female past medical history of depression who presented to the emergency department complaining of abdominal and flank pain. Patient states she was last here on Monday (May 02) experiencing abdominal pain. States that today prior to admission while she was at work she expressed a 10 out of 10 epigastric pain. Described as sharp and which ran in duration from 3 to 4 PM. She subsequently went home and due to lack of resolution to her symptoms came into the emergency department. She states over the last 48 hours she's had a decrease in appetite and had eating very light foods such as salads. Patient states that on Monday she felt that her symptoms were getting worse. She did endorse two episodes of nonbloody non-bilious emesis. She is a nonsmoker she does not use alcohol regularly, she does not use any recreational drugs. Patient also endorses changes to her urinary habits. She states that she noted some dark yellow urine. R: She denied any fever although endorsed chills and nausea. She denied any chest pain or chest discomfort or shortness of breath. E: E Temperature 98.0, pulse 71, respirations 20, blood pressure 122/75. Saturating 97% on room air. HEENT: extraocular motion intact, no nystagmus. Nose is atraumatic. External auditory canal and Tympanic membranes clear. Pharynx normal. No swelling or edema. Neck: Supple, no lymphadenopathy, normal range of motion without pain or tenderness Skin:WNL. No signs of Jaundice. Cardiovascular: Regular rate and rhythm no murmurs rubs or gallops. Respiratory: Chest nontender. No respiratory distress. Abdomen: Soft, nontender nondistended, no appreciable organomegaly. Normal bowel sounds. No ascites, no rebound or guarding. Dia sign + Extremity: No edema, no calf tenderness to palpation, normal and equal pulses. No crepitus or fluctuation. Neuro:AOX 3. CN 2 - 12 intact. L: Labs were notable for white count at 11.8. Platelet count 49. Total bilirubin 2.6, direct bilirubin 1.8, AST 230, ALT 572 alkaline phosphatase 194. I: IMPRESSION: Cholelithiasis without evidence for acute cholecystitis. There is mild dilatation of the common bile duct without filling defects seen. Unremarkable appearance of the pancreas. A/P: This is a 37-year-old female with previous history of abdominal pain (but no formal diagnosis of pancreatitis) who presented again with worsening abdominal pain, du to pancreatitis. We will admit the patient to general medicine hold off on any antibiotics. Elevation in lipase and amylase point towards a diagnosis of pancreatitis, likely from a gallstone. Aggressively hydrate the patient, with lactated Ringer's. A lipid panel has been obtained to assess triglyceride level. Right upper quadrant ultrasound evaluation for any acute intra-hepatic pathology. We'll consult GI in the morning, assess need for ERCP especially in the setting of increasing LFTs. Monitor electrolytes and LFTs. Keep nothing by mouth for now and advance diet as tolerated as patient is clinically more stable. Assess need for cholesytectomy. Inpatient vs Outpatient. Patient is a full code.
[2017-05-09 04:14] VITALS: BP 130/96
--- NOTE | 2017-05-09 04:45 | Admission Certification ---
Admission Certification Certification Statement - As attending physician, I certify that at the time of - admission, based on clinical presentation, severity of - symptoms, need for further diagnostic testing and - therapeutic interventions, and risk of adverse outcomes - without in-hospital treatment, in my clinical assessment, - this patient requires an acute hospital stay for a minimum - of two nights or longer. I have also considered psychsocial - factors such as support system, advanced age, financial - issues, cognitive issues, and failed out-patient treatments, - past re-admission history, safety of patient, and lack of - compliance as applicable. Specific rationale supporting this admission is: Gallstone pancreatitis
--- NOTE | 2017-05-09 07:10 | Cons- Gastroenterology ---
General Information and HPI Consulting Request Date of Consult: 05/09/17 Requested By: TOSHA HARVEY MD Reason for Consult: GS Pancreatitis. Abdominal pain. Abnormal ct scan/US. Abnormal LFTs Source of Information: patient Exam Limitations: no limitations History of Present Illness: Ms. Pitt is a 37 year old female with no significant PMH who presented to last night with complaints of worsening RUQ/mid epigastric pain which she has been having since January. She notes that with eating she will get a sharp mid- epigastric pain which radiates to the RUQ. The pain became more severe over the past week and she came to the ER on May 02 at which point she had unremarkable blood work and a CAT scan that did show a prominent CBD, but was otherwise unremarkable and she was subsequently sent home. She continued to have intermittent right upper quadrant discomfort and then yesterday the pain became more severe than it had ever been and was associated with some bilious vomiting. The pain radiated around to the right upper quadrant and around to her back, but not through to her back. She does note some dark urine, but she denies nasir -colored stool stating her stools are green in color. She is without any bright blood per rectum or any melena. She has also not had any high fevers. In the emergency room she was afebrile and hemodynamically stable. She was given narcotics to control her pain, IV fluids, and she was started on IV Unasyn. She was ultimately admitted to the medical floor with a diagnosis of gallstone pancreatitis after noting a lipase over 9000 with increased LFTs. She has remained afebrile since admission and her pain is markedly improved from last night. She is requesting to drink, but does not feel like eating. Allergies/Medications Allergies: Coded Allergies: No Known Allergies (05/02/17) Home Med List: Docusate Sodium (Colace) 100 MG CAPSULE 1 CAP PO BID PRN Constipation Hold for more than 1 bowel regimen per 24hrs. Ergocalciferol (Vitamin D2) (Vitamin D2) 50,000 UNIT CAPSULE 1 TAB PO ONCE A WEEK SUPP (Reported) Loratadine/Pseudoephedrine (Claritin-D 24 Hour Tablet) 10 MG-240 MG TAB.ER.24H 1 TAB PO DAILY PRN ALLERGIES (Reported) Omeprazole 20 MG TABLET.DR 1 TAB PO DAILY gastritis Oxycodone HCl 5 MG TABLET 1 TAB PO Q4P PRN PAIN SCALE 4-6 (MODERATE) As directed Sertraline HCl 100 MG TABLET 1 TAB PO DAILY DEPRESSION (Reported) Current Medications: Current Medications Sig/Willem Start time Last Medication Dose Route Stop Time Status Admin Ampicillin Sodium/ 0 .STK-MED ONE 05/09 0050 DC Sulbactam Sodium .ROUTE Ampicillin Sodium/ 1,500 MG ONCE ONE 05/09 0045 DC 05/09 Sulbactam Sodium IV 05/09 0114 0118 Sodium Chloride 100 ML Enoxaparin Sodium 40 MG DAILY 05/09 1000 AC SC Ketorolac 0 .STK-MED ONE 05/09 0038 DC Tromethamine .ROUTE Ketorolac 30 MG ONCE ONE 05/09 0030 DC 05/09 Tromethamine IV 05/09 0031 0038 Lactated Ringer's 1,000 ML ONCE ONE 05/09 0415 AC 05/09 IV 05/09 0914 0430 Morphine Sulfate 0 .STK-MED ONE 05/09 0050 DC .ROUTE Morphine Sulfate 6 MG ONCE ONE 05/09 0045 DC 05/09 IV 05/09 0046 0051 Ondansetron HCl 0 .STK-MED ONE 05/09 0038 DC .ROUTE Ondansetron HCl 4 MG ONCE ONE 05/09 0030 DC 07 IV 05/09 0031 0038 Sodium Chloride 1,000 ML Q10H 05/09 0300 AC 07 IV 05/09 1259 0304 Sodium Chloride 1,000 ML BOLUS ONE 05/09 0045 DC 07 IV 05/09 0144 0147 Sodium Chloride 1,000 ML BOLUS ONE 05/09 0030 DC 05/09 IV 05/09 0129 0038 Past History Travel History Traveled to [place] past 21 day No Medical History EENT: allergies Gastrointestinal: gallstone Psychiatric: depression Surgical History Surgical History: Psychosocial History Smoking Status: Never Smoked ETOH Use: denies use Illicit Drug Use: denies illicit drug use Review of Systems Review of Systems Constitutional: Denies: no symptoms. EENTM: Denies: no symptoms. Cardiovascular: Reports: palpitations. Respiratory: Reports: short of breath. Denies: cough, hemoptysis, orthopnea. GI: Reports: see HPI. Genitourinary: Reports: see HPI (dark urine). Denies: discharge, dysuria, frequency. Musculoskeletal: Denies: no symptoms. Skin: Denies: no symptoms. Neurological/Psychological: Denies: no symptoms. Hematologic/Endocrine: Denies: no symptoms. Immunologic/Allergic: Denies: no symptoms. All Other Systems: Reviewed and Negative Exam & Diagnostic Data Vital Signs and I&O Vital Signs Date Time Temp Pulse Resp B/P B/P Pulse O2 O2 Flow FiO2 Mean Ox Delivery Rate 05/09 0414 97.8 68 20 130/96 97 Room Air 05/09 0259 98.3 76 20 106/93 98 Room Air 05/08 2310 98 Room Air 05/08 2157 98.0 71 20 122/75 97 Room Air Intake & Output 05/09 04005/08 04005/07 040 Intake Total Output Total Balance Patient 180 lb Weight Weight Reported by Patient Measurement Method Physical Exam General Appearance: well developed/nourished, no apparent distress, alert, comfortable Head: atraumatic Eyes: Bilateral: normal appearance. Ears, Nose, Throat: normal pharynx, normal ENT inspection, hearing grossly normal Neck: normal inspection, supple, full range of motion Respiratory: normal breath sounds, chest non-tender Cardiovascular: regular rate/rhythm Gastrointestinal: normal bowel sounds, soft, non-tender, no organomegaly Rectal: deferred Back: normal inspection Extremities: normal inspection, normal capillary refill, normal range of motion, no edema Neurologic/Psych: no motor/sensory deficits, awake, alert, oriented x 3 Skin: intact, normal color, warm/dry Results Pertinent Lab Results: Laboratory Tests 05/08 05/08 2326 2250 Chemistry Sodium (137 - 145 mmol/L) 137 Potassium (3.5 - 5.1 mmol/L) 4.1 Chloride (98 - 107 mmol/L) 101 Carbon Dioxide (22 - 30 mmol/L) 22 Anion Gap (5 - 16) 13 BUN (7 - 17 mg/dL) 12 Creatinine (0.5 - 1.0 mg/dL) 0.6 Estimated GFR (>60 ml/min) > 60 BUN/Creatinine Ratio (7 - 25 %) 20.0 Glucose (65 - 99 mg/dL) 119 H Calcium (8.4 - 10.2 mg/dL) 9.5 Total Bilirubin (0.2 - 1.3 mg/dL) 2.6 H Direct Bilirubin (< 0.4 mg/dL) 1.8 H AST (14 - 36 U/L) 230 H ALT (9 - 52 U/L) 572 H Alkaline Phosphatase (<127 U/L) 194 H Total Protein (6.3 - 8.2 g/dL) 8.2 Albumin (3.5 - 5.0 g/dL) 4.7 Globulin (1.9 - 4.2 gm/dL) 3.5 Albumin/Globulin Ratio (1.1 - 2.2 %) 1.3 Amylase (30 - 110 U/L) 543 H Lipase (23 - 300 U/L) 9721 H Hematology CBC w Diff NO MAN DIFF REQ WBC (4.8 - 10.8 /CUMM) 11.8 H RBC (4.20 - 5.40 /CUMM) 5.06 Hgb (12.0 - 16.0 G/DL) 13.2 Hct (37 - 47 %) 40.6 MCV (81.0 - 99.0 FL) 80.2 L MCH (27.0 - 31.0 PG) 26.0 L RDW (11.5 - 14.5 %) 13.5 Plt Count (130 - 400 /CUMM) 409 H MPV (7.4 - 10.4 FL) 7.9 Gran % (42.2 - 75.2 %) 74.2 Lymphocytes % (20.5 - 51.1 %) 17.4 L Monocytes % (1.7 - 9.3 %) 7.0 Eosinophils % (0 - 5 %) 1.2 Basophils % (0.0 - 2.0 %) 0.2 Absolute Granulocytes (1.4 - 6.5 /CUMM) 8.7 H Absolute Lymphocytes (1.2 - 3.4 /CUMM) 2.1 Absolute Monocytes (0.10 - 0.60 /CUMM) 0.8 H Absolute Eosinophils (0.0 - 0.7 /CUMM) 0.1 Absolute Basophils (0.0 - 0.2 /CUMM) 0 PUBS MCHC (33.0 - 37.0 G/DL) 32.4 L Urines Urinalysis MOD H Urine Color (YEL,AMB,STR) YEL Urine Clarity (CLEAR) HAZY H Urine pH (5.0 - 8.0) 6.[address] (1.001 - 1.035) 1.025 Urine Protein (NEG,<30 MG/DL) TRACE H Urine Ketones (NEG) 15 H Urine Nitrite (NEG) NEG Urine Bilirubin (NEG) NEG@ICTO Urine Urobilinogen (0.1 - 1.0 EU/dl) 2.0 H Ur Leukocyte Esterase (NEG) NEG Ur Microscopic SEDIMENT EXAMINED Urine RBC (0 - 5 /HPF) 1-3 Urine WBC (0 - 2 /HPF) 1-3 H Ur Epithelial Cells (NONE,FEW) RARE Urine Hemoglobin (NEG) MOD H Urine Glucose (N MG/DL) NEG Urine Test NEGATIVE Imaging/Other Studies: SERVICE DATE: 05/09/17 EXAM TYPE: CAT - CT ABD & PELVIS W IV CONTRAST EXAMINATION: CT ABDOMEN AND PELVIS WITH CONTRAST CLINICAL INFORMATION: Gallstone pancreatitis COMPARISON: 05/02/2017 TECHNIQUE: Multidetector volumetric imaging was performed of the abdomen and pelvis before and after the IV administration of 95 mL of Optiray 320 intravenous contrast. Sagittal and coronal reformatted images were obtained on the technologist's workstation. DLP: 476 mGy-cm FINDINGS: LUNG BASES: The visualized lung bases are unremarkable. LIVER, GALLBLADDER, AND BILIARY TREE: The liver is normal in size, shape, and attenuation. No focal hepatic lesion or biliary ductal dilatation is present. The gallbladder is normally distended. Gallstones are seen within the gallbladder lumen. No gallbladder wall thickening or adjacent inflammation noted. The common bile duct is prominent, measuring 0.8 cm in diameter. No definite filling defects seen. PANCREAS: Unremarkable. SPLEEN: Unremarkable. ADRENAL GLANDS: Unremarkable. KIDNEYS AND URETERS: The kidneys are normal in size, shape, and attenuation. No hydronephrosis, hydroureter, or calculi seen. No perinephric stranding. BLADDER: Unremarkable. GASTROINTESTINAL TRACT: The stomach and small bowel are unremarkable. No dilated loops of bowel or evidence of obstruction. Normal appendix. No colonic wall thickening or inflammatory change. No free air or free fluid. ABDOMINAL WALL: No significant hernia is appreciated. LYMPH NODES: Normal. VASCULAR: Unremarkable. PELVIC VISCERA: An IUD is in place. No adnexal mass. OSSEOUS STRUCTURES: No acute or suspicious osseous abnormality. IMPRESSION: Cholelithiasis without evidence for acute cholecystitis. There is mild dilatation of the common bile duct without filling defects seen. Unremarkable appearance of the pancreas. Assessment/Plan Assessment/Recommendations: Assessment: Ms. Pitt is a 37-year-old female who has been having symptoms of biliary colic for the past several months which worsened over the past week who presents now with evidence of gallstone pancreatitis likely from a passed gallstone. Her bilirubin was mildly elevated on admission and she did report some dark urine which are both suggestive of a common bile duct stone causing biliary obstruction, but it is possible she may have passed the stone in which case an ERCP will not be necessary. While she did not have evidence of pancreatitis on her CAT scan her markedly elevated lipase of over 9000 along with increased LFTs which were normal a week ago is highly suggestive that she likely passed a gallstone. Her pain has improved markedly since admission, which also suggests she passed a gallstone, and she is without evidence of cholangitis as she has been afebrile and stable since admission. While she may ultimately require an ERCP if she does return to service [facility] to have choledocholithiasis as she is without cholangitis and does have pancreatitis this is not urgent and should only be pursued if biliary obstruction is confirmed by an increasing bilirubin or on further imaging such as with an MRCP. She should have a cholecystectomy which would ideally be done on this hospitalization, but would defer to surgery as to the timing considering her pancreatitis. Recommendations: 1. Continue IV hydration with lactated Ringer solution and at a rate of 200-250 mL an hour for the first 24-48 hours and then reassess volume status. 2. Would recheck LFTs today and would also check an INR if one has not already been done. 3. Would observe off of antibiotics. 4. Administer analgesia as needed with narcotics and antiemetics as needed. 5. Notify GI for signs of cholangitis such as high fevers or hemodynamic instability. 6. If her bilirubin is stable or improving today would check an MRCP when it is available to rule out any choledocholithiasis which may require an ERCP. 7. If her bilirubin is increasing will then arrange for an ERCP without further imaging. 8. Call a surgical consult to give consideration for a inpatient versus outpatient cholecystectomy. I will continue to follow this patient and make further condition based on her clinical course, results of repeat blood work, and further imaging if it is obtained. Problem List: 1. Cholelithiases 2. Gallstone pancreatitis 3. Pancreatitis 4. Abdominal pain Consult Acknowledgment - Thank you for your consult request.
--- NOTE | 2017-05-09 08:01 | PN- Housestaff ---
Subjective Follow-up For: Cholelithasis Complaints: no complaints Subjective: I seen and examined the patient the patient was resting comfortably in bed. She does not have any pain at this time. She does have a little bit of nausea and headache. She is nothing by mouth for anticipated MRCP/ERCP depending upon GI recommendations. Review of Systems Constitutional: Reports: no symptoms, chills. Objective Last 24 Hrs of Vital Signs/I&O Vital Signs Date Time Temp Pulse Resp B/P B/P Pulse O2 O2 Flow FiO2 Mean Ox Delivery Rate 05/09 0414 97.8 68 20 130/96 97 Room Air 05/09 0400 97 Room Air 05/09 0259 98.3 76 20 106/93 98 Room Air 05/08 2310 98 Room Air 05/08 2157 98.0 71 20 122/75 97 Room Air Intake & Output 05/09 1600 05/09 0800 05/09 0000 Intake Total 400 Output Total Balance 400 Intake, IV 400 Intake, Oral 0 Number 0 Bowel Movements Patient 180 lb 180 lb Weight Weight Reported by Patient Reported by Patient Measurement Method Physical Exam General Appearance: Alert, Oriented X3, Cooperative, No Acute Distress Skin: no jaundice Neck: Supple Cardiovascular: Normal S1, Normal S2, No Murmurs Lungs: Clear to Auscultation, Normal Air Movement Abdomen: Normal Bowel Sounds, Soft, muprhy sign +, no epigastric tenderness, patient states that the pain usually radiates around her epigastric region into her right upper quadrant Neurological: Normal Speech Extremities: No Edema, Normal Pulses Current Medications: Current Medications Sig/Willem Start time Last Medication Dose Route Stop Time Status Admin Acetaminophen 650 MG Q4P PRN 05/09 133 AC PO Ampicillin Sodium/ 0 .STK-MED ONE 05/09 0050 DC Sulbactam Sodium .ROUTE Ampicillin Sodium/ 1,500 MG ONCE ONE 05/09 0045 DC 05/09 Sulbactam Sodium IV 05/09 0114 0118 Sodium Chloride 100 ML Enoxaparin Sodium 40 MG DAILY 05/09 1000 AC 05/09 SC 1105 Ketorolac 30 MG ONCE PRN 05/09 1330 DC 05/09 Tromethamine IV 1330 Ketorolac 0 .STK-MED ONE 05/09 0038 DC Tromethamine .ROUTE Ketorolac 30 MG ONCE ONE 05/09 0030 DC 05/09 Tromethamine IV 05/09 0031 0038 Lactated Ringer's 1,000 ML .Q4H 05/09 0845 AC 05/09 IV 05/10 0800 1124 Lactated Ringer's 1,000 ML ONCE ONE 05/09 0415 DC 05/09 IV 05/09 0914 0430 Morphine Sulfate 2 MG Q6P PRN 05/09 1330 AC IV Morphine Sulfate 0 .STK-MED ONE 05/09 0050 DC .ROUTE Morphine Sulfate 6 MG ONCE ONE 05/09 0045 DC 05/09 IV 05/09 0046 0051 Ondansetron HCl 0 .STK-MED ONE 05/09 0038 DC .ROUTE Ondansetron HCl 4 MG ONCE ONE 05/09 0030 DC 05/09 IV 05/09 0031 0038 Sodium Chloride 1,000 ML Q10H 05/09 0300 DC 05/09 IV 05/09 1259 0304 Sodium Chloride 1,000 ML BOLUS ONE 05/09 0045 DC 05/09 IV 05/09 0144 0147 Sodium Chloride 1,000 ML BOLUS ONE 05/09 0030 DC 05/09 IV 05/09 0129 0038 Last 24 Hrs of Lab/[place] Results Last 24 Hrs of Labs/Mics: Laboratory Tests 05/09/17 1025: Total Bilirubin 3.0 H, Direct Bilirubin 2.1 H, AST 159 H, ALT 445 H, Alkaline Phosphatase 147 H, Total Protein 6.3, Albumin 3.8, PT 11.3, INR 1.08 05/09/17 0700: Anion Gap 12, Estimated GFR > 60, BUN/Creatinine Ratio 16.0, Triglycerides 85, Cholesterol 153, LDL Cholesterol, Calc 85, HDL Cholesterol 51, Cholesterol/HDL Ratio 3, Amylase 687 H, Lipase 6106 H, CBC w Diff NO MAN DIFF REQ, RBC 4.67, MCV 81.3, MCH 26.6 L, RDW 13.7, MPV 8.1, Gran % 63.9, Lymphocytes % 27.1, Monocytes % 7.3, Eosinophils % 1.3, Basophils % 0.4, Absolute Granulocytes 7.0 H, Absolute Lymphocytes 3.0, Absolute Monocytes 0.8 H, Absolute Eosinophils 0.1 , Absolute Basophils 0, PUBS MCHC 32.7 L 05/08/17 2326: Anion Gap 13, Estimated GFR > 60, BUN/Creatinine Ratio 20.0, Glucose 119 H, Calcium 9.5, Total Bilirubin 2.6 H, Direct Bilirubin 1.8 H, AST 230 H, ALT 572 H, Alkaline Phosphatase 194 H, Total Protein 8.2, Albumin 4.7, Globulin 3.5, Albumin/Globulin Ratio 1.3, Amylase 543 H, Lipase 9721 H, CBC w Diff NO MAN DIFF REQ, RBC 5.06, MCV 80.2 L, MCH 26.0 L, RDW 13.5, MPV 7.9, Gran % 74.2 , Lymphocytes % 17.4 L, Monocytes % 7.0, Eosinophils % 1.2, Basophils % 0.2, Absolute Granulocytes 8.7 H, Absolute Lymphocytes 2.1, Absolute Monocytes 0.8 H, Absolute Eosinophils 0.1, Absolute Basophils 0, PUBS MCHC 32.4 L 05/08/17 2250: Urinalysis MOD H, Urine Color YEL, Urine Clarity HAZY H, Urine pH 6.0, Ur Specific [place] 1.025, Urine Protein TRACE H, Urine Ketones 15 H, Urine Nitrite NEG, Urine Bilirubin NEG@ICTO, Urine Urobilinogen 2.0 H, Ur Leukocyte Esterase NEG, Ur Microscopic SEDIMENT EXAMINED, Urine RBC 1-3, Urine WBC 1-3 H, Ur Epithelial Cells RARE, Urine Hemoglobin MOD H, Urine Glucose NEG, Urine Test NEGATIVE Lines/Diet/Fluids Fluids/Infusions: ringer lactate for 24 h 250ml Assessment/Plan Assessment: Assessment The pt is a 37-year-old female who has been having symptoms of biliary colic for the past several months worsened over the past week presents now with evidence of gallstone pancreatitis likely from a passed gallstone as per GI.Her bilirubin was mildly elevated on admission.She is without evidence of cholangitis as she has been afebrile and stable since admission. Pertinent data -elevated AST 230, ALT 572, ALP 194, amylase 543, and lipase 9721 most likely pancreatitis secondary to gallstone -CT Cholelithiasis without evidence for acute cholecystitis. There is mild dilatation of the common bile duct without filling defects seen. Unremarkable appearance of the pancreas. -U/S 1. The liver has diffusely increased echogenicity consistent with hepatic steatosis. 2. There are multiple gallstones noted in the gallbladder, without evidence of acute cholecystitis. The CBD is moderately distended at 0.9 cm. Plan -IV hydration with lactated Ringer solution 250ML/HR , switched to 100ml/hr -LFTs are improving except for bilirubin, trending LFTs if stable will get MRCP tomorrow (to rule out any choledocholithiasis which may require an ERCP) as unfortunately no MRI available today, if worsens ERCP without further imaging -off of antibiotics as per GI reccs -will notify GI for signs of cholangitis such as high fevers or hemodynamic instability. -surgical consult called, note pending to give consideration for a inpatient versus outpatient cholecystectomy Pain management tylenol 1000 q6 ketorolac 30 mg morphine 2 mg q6 Problem List: 1. Abdominal pain 2. Cholelithiases 3. Gallstone pancreatitis Pain Ratin Pain Location: epigastric ruq Pain Goal: Pain 4 or less Pain Plan: tylenol 650 q4 ketorolac 30 mg morphine 2 mg q6 Tomorrow's Labs & Rationales: cbc bep lfts
[2017-05-09 08:46] LABS: ABSOLUTE BASOPHIL COUNT 0 /CUMM (0.0-0.2); ABSOLUTE EOSINOPHIL COUNT 0.1 /CUMM (0.0-0.7); ABSOLUTE MONOCYTE COUNT 0.8 /CUMM (0.10-0.60); BASOPHIL % 0.4 % (0.0-2.0); EOSINOPHIL % 1.3 % (0-5); GRANULOCYTE % 63.9 % (42.2-75.2); MEAN CORPUSCULAR HGB 26.6 PG (27.0-31.0); MEAN CORPUSCULAR HGB CONC 32.7 G/DL (33.0-37.0); MEAN CORPUSCULAR VOLUME 81.3 FL (81.0-99.0); MEAN PLATELET VOLUME 8.1 FL (7.4-10.4); PLATELET COUNT 364 /CUMM (130-400); RBC DISTRIBUTION WIDTH 13.7 % (11.5-14.5); RED BLOOD CELL CT 4.67 /CUMM (4.20-5.40)
--- NOTE | 2017-05-09 10:27 | ULTRASOUND REPORT ---
EXAMINATION: US ABDOMEN COMPLETE CLINICAL INFORMATION: Pain and increased LFTs. COMPARISON: CT scan of the abdomen and pelvis earlier 05/09/2017. TECHNIQUE: Real-time imaging of the abdominal viscera. FINDINGS: PANCREAS: The visualized pancreatic head and body are normal in appearance. The remainder of the pancreas is obscured from visualization by the overlying bowel gas. ABDOMINAL AORTA: The proximal segment is normal in caliber. INFERIOR VENA CAVA: Visualized portions are normal. LIVER: The liver demonstrates normal size and contour. Echogenicity is diffusely increased, consistent with hepatic steatosis. No focal lesion or intrahepatic biliary duct dilatation. GALLBLADDER: The gallbladder is physiologically distended. There are multiple echogenic calculi seen within the gallbladder lumen. There is no gallbladder wall thickening or pericholecystic fluid. COMMON BILE DUCT: Normal in caliber measuring 0.9 cm in diameter. RIGHT KIDNEY: There is no hydronephrosis. No renal calculi or focal parenchymal lesions. The kidney measures 11.1 cm in maximum dimension. LEFT KIDNEY: There is no hydronephrosis. No renal calculi or focal parenchymal lesions. The kidney measures 12.1 cm in maximum dimension. SPLEEN: The spleen measures 10.3 cm in maximum dimension. FREE FLUID: None. IMPRESSION: 1. The liver has diffusely increased echogenicity consistent with hepatic steatosis. 2. There are multiple gallstones noted in the gallbladder, without evidence of acute cholecystitis. The CBD is moderately distended at 0.9 cm.
[2017-05-09 11:29] LABS: PT 11.3 SEC (9.4-12.5)
--- NOTE | 2017-05-09 12:44 | PN- Att Addend ---
Attending Addendum Attending Brief Note Patient seen and examined, had some abdominal discomfort but slightly better than yesterday. She is a 37-year-old female who was admitted with gallstone pancreatitis. Vital Signs Date Time Temp Pulse Resp B/P B/P Pulse O2 O2 Flow FiO2 Mean Ox Delivery Rate 05/09 0414 97.8 68 20 130/96 97 Room Air 05/09 0400 97 Room Air 05/09 0259 98.3 76 20 106/93 98 Room Air 05/08 2310 98 Room Air 05/08 2157 98.0 71 20 122/75 97 Room Air on exam; aox3, nad. cv; s1, s2, rrr resp; clear abd; soft, + tenderness in epigstrium mild, bs+ ext; no edema. Laboratory Tests 05/09 05/09 1025 0700 Chemistry Sodium (137 - 145 mmol/L) 139 Potassium (3.5 - 5.1 mmol/L) 4.2 Chloride (98 - 107 mmol/L) 107 Carbon Dioxide (22 - 30 mmol/L) 20 L Anion Gap (5 - 16) 12 BUN (7 - 17 mg/dL) 8 Creatinine (0.5 - 1.0 mg/dL) 0.5 Estimated GFR (>60 ml/min) > 60 BUN/Creatinine Ratio (7 - 25 %) 16.0 Total Bilirubin (0.2 - 1.3 mg/dL) 3.0 H Direct Bilirubin (< 0.4 mg/dL) 2.1 H AST (14 - 36 U/L) 159 H ALT (9 - 52 U/L) 445 H Alkaline Phosphatase (<127 U/L) 147 H Total Protein (6.3 - 8.2 g/dL) 6.3 Albumin (3.5 - 5.0 g/dL) 3.8 Triglycerides (<150 mg/dL) 85 Cholesterol (<200 MG/DL) 153 LDL Cholesterol, Calc (65 - 129 mg/dL) 85 HDL Cholesterol (40 - 60 mg/dL) 51 Cholesterol/HDL Ratio (0.00 - 4.23 %) 3 Amylase (30 - 110 U/L) 687 H Lipase (23 - 300 U/L) 6106 H Coagulation PT (9.4 - 12.5 SEC) 11.3 INR (0.90 - 1.19) 1.08 Hematology CBC w Diff NO MAN DIFF REQ WBC (4.8 - 10.8 /CUMM) 11.0 H RBC (4.20 - 5.40 /CUMM) 4.67 Hgb (12.0 - 16.0 G/DL) 12.4 Hct (37 - 47 %) 38.0 MCV (81.0 - 99.0 FL) 81.3 MCH (27.0 - 31.0 PG) 26.6 L RDW (11.5 - 14.5 %) 13.7 Plt Count (130 - 400 /CUMM) 364 MPV (7.4 - 10.4 FL) 8.1 Gran % (42.2 - 75.2 %) 63.9 Lymphocytes % (20.5 - 51.1 %) 27.1 Monocytes % (1.7 - 9.3 %) 7.3 Eosinophils % (0 - 5 %) 1.3 Basophils % (0.0 - 2.0 %) 0.4 Absolute Granulocytes (1.4 - 6.5 /CUMM) 7.0 H Absolute Lymphocytes (1.2 - 3.4 /CUMM) 3.0 Absolute Monocytes (0.10 - 0.60 /CUMM) 0.8 H Absolute Eosinophils (0.0 - 0.7 /CUMM) 0.1 Absolute Basophils (0.0 - 0.2 /CUMM) 0 PUBS MCHC (33.0 - 37.0 G/DL) 32.7 L 05/08 05/08 2326 2250 Chemistry Sodium (137 - 145 mmol/L) 137 Potassium (3.5 - 5.1 mmol/L) 4.1 Chloride (98 - 107 mmol/L) 101 Carbon Dioxide (22 - 30 mmol/L) 22 Anion Gap (5 - 16) 13 BUN (7 - 17 mg/dL) 12 Creatinine (0.5 - 1.0 mg/dL) 0.6 Estimated GFR (>60 ml/min) > 60 BUN/Creatinine Ratio (7 - 25 %) 20.0 Glucose (65 - 99 mg/dL) 119 H Calcium (8.4 - 10.2 mg/dL) 9.5 Total Bilirubin (0.2 - 1.3 mg/dL) 2.6 H Direct Bilirubin (< 0.4 mg/dL) 1.8 H AST (14 - 36 U/L) 230 H ALT (9 - 52 U/L) 572 H Alkaline Phosphatase (<127 U/L) 194 H Total Protein (6.3 - 8.2 g/dL) 8.2 Albumin (3.5 - 5.0 g/dL) 4.7 Globulin (1.9 - 4.2 gm/dL) 3.5 Albumin/Globulin Ratio (1.1 - 2.2 %) 1.3 Amylase (30 - 110 U/L) 543 H Lipase (23 - 300 U/L) 9721 H Hematology CBC w Diff NO MAN DIFF REQ WBC (4.8 - 10.8 /CUMM) 11.8 H RBC (4.20 - 5.40 /CUMM) 5.06 Hgb (12.0 - 16.0 G/DL) 13.2 Hct (37 - 47 %) 40.6 MCV (81.0 - 99.0 FL) 80.2 L MCH (27.0 - 31.0 PG) 26.0 L RDW (11.5 - 14.5 %) 13.5 Plt Count (130 - 400 /CUMM) 409 H MPV (7.4 - 10.4 FL) 7.9 Gran % (42.2 - 75.2 %) 74.2 Lymphocytes % (20.5 - 51.1 %) 17.4 L Monocytes % (1.7 - 9.3 %) 7.0 Eosinophils % (0 - 5 %) 1.2 Basophils % (0.0 - 2.0 %) 0.2 Absolute Granulocytes (1.4 - 6.5 /CUMM) 8.7 H Absolute Lymphocytes (1.2 - 3.4 /CUMM) 2.1 Absolute Monocytes (0.10 - 0.60 /CUMM) 0.8 H Absolute Eosinophils (0.0 - 0.7 /CUMM) 0.1 Absolute Basophils (0.0 - 0.2 /CUMM) 0 PUBS MCHC (33.0 - 37.0 G/DL) 32.4 L Urines Urinalysis MOD H Urine Color (YEL,AMB,STR) YEL Urine Clarity (CLEAR) HAZY H Urine pH (5.0 - 8.0) 6.0 Ur Specific [place] (1.001 - 1.035) 1.025 Urine Protein (NEG,<30 MG/DL) TRACE H Urine Ketones (NEG) 15 H Urine Nitrite (NEG) NEG Urine Bilirubin (NEG) NEG@ICTO Urine Urobilinogen (0.1 - 1.0 EU/dl) 2.0 H Ur Leukocyte Esterase (NEG) NEG Ur Microscopic SEDIMENT EXAMINED Urine RBC (0 - 5 /HPF) 1-3 Urine WBC (0 - 2 /HPF) 1-3 H Ur Epithelial Cells (NONE,FEW) RARE Urine Hemoglobin (NEG) MOD H Urine Glucose (N MG/DL) NEG Urine Test NEGATIVE A/P; 37 y/o F with pmh sig gastritis, depression admitted with abd pain, acute pancreatitis, gall stones. Patient has been seen by GI. Recommendation was to obtain an MRCP but unfortunately no MRI available today. Ultrasound showed some dilatation of CBD. No signs of acute cholecystitis. LFTs are improving except for bilirubin. Patient is nothing by mouth and on IV fluids. She has mild leukocytosis. She is being watched off of antibiotics. We will discuss with GI about no limited mobility and MRI today. Question is if the patient can return tomorrow if she needs ERCP more urgently. Pain level 0. DVT px; Lovenox.
--- NOTE | 2017-05-09 13:35 | Cons- General Surgery ---
General Information and HPI Consulting Request Date of Consult: 05/09/17 Requested By: TOSHA HARVEY MD History of Present Illness: CC: abdominal pain HPI: 37-year-old nondiabetic nonsmoker, who came to the ER with worse pain yesterday she was here on the fourth of similar pain that resolved she was told she had gallstones in retrospect she's had intermittent upper abdominal pain for a few months, this time the pain radiated around both sides to her back, that's new, since being admitted and some relieved with IV analgesics the pain was better earlier today but right now it's come back subxiphoid constant not worse on movement, she can't recall any relation to foods necessarily doesn't really have a lot of fast food or snacks all rich fried fatty foods, but she has noticed some darkening in her urine but no diarrhea there was some nausea vomiting initially but no fevers or sweats no FHx of gallbladder problems. Otherwise no changes bowel habits, weight or appetite. [facility] No history of GERD, PUD, bleeding problems, heart disease or issues with anesthesia. Family history positive for heart disease. Workup has showed elevated liver function tests and an MRCP was ordered for tomorrow gastroenterology has seen her Allergies/Medications Allergies: Coded Allergies: No Known Allergies (05/02/17) Home Med List: Ergocalciferol (Vitamin D2) (Vitamin D2) 50,000 UNIT CAPSULE 1 TAB PO DAILY SUPP (Reported) Loratadine/Pseudoephedrine (Claritin-D 24 Hour Tablet) 10 MG-240 MG TAB.ER.24H 1 TAB PO DAILY PRN ALLERGIES (Reported) Omeprazole 20 MG TABLET.DR 1 TAB PO DAILY gastritis Sertraline HCl 100 MG TABLET 1 TAB PO DAILY DEPRESSION (Reported) Current Medications: I reviewed Current Medications Sig/Willem Start time Last Medication Dose Route Stop Time Status Admin Acetaminophen 650 MG Q4P PRN 05/09 1330 UNVr PO Ampicillin Sodium/ 0 .STK-MED ONE 05/09 0050 DC Sulbactam Sodium .ROUTE Ampicillin Sodium/ 1,500 MG ONCE ONE 05/09 0045 DC 05/09 Sulbactam Sodium IV 05/09 0114 0118 Sodium Chloride 100 ML Enoxaparin Sodium 40 MG DAILY 05/09 1000 AC 05/09 SC 1105 Ketorolac 30 MG ONCE PRN 05/09 1330 UNVr 05/09 Tromethamine IV 1330 Ketorolac 0 .STK-MED ONE 05/09 0038 DC Tromethamine .ROUTE Ketorolac 30 MG ONCE ONE 05/09 0030 DC 05/09 Tromethamine IV 05/09 0031 0038 Lactated Ringer's 1,000 ML .Q4H 05/09 0845 AC 05/09 IV 05/10 0800 1124 Lactated Ringer's 1,000 ML ONCE ONE 05/09 0415 DC 05/09 IV 05/09 0914 0430 Morphine Sulfate 2 MG Q6P PRN 05/09 1330 UNVr IV Morphine Sulfate 0 .STK-MED ONE 05/09 0050 DC .ROUTE Morphine Sulfate 6 MG ONCE ONE 05/09 0045 DC 05/09 IV 05/09 0046 0051 Ondansetron HCl 0 .STK-MED ONE 05/09 0038 DC .ROUTE Ondansetron HCl 4 MG ONCE ONE 05/09 0030 DC 05/09 IV 05/09 0031 0038 Sodium Chloride 1,000 ML Q10H 05/09 0300 DC 07 IV 05/09 1259 0304 Sodium Chloride 1,000 ML BOLUS ONE 05/09 0045 DC 07 IV 05/09 0144 0147 Sodium Chloride 1,000 ML BOLUS ONE 05/09 0030 DC 05/09 IV 05/09 0129 0038 Past History Medical History Blood Transfusion Hx: No Neurological: NONE EENT: allergies Cardiovascular: NONE Respiratory: NONE Gastrointestinal: gallstone Hepatic: cholelithiasis Musculoskeletal: NONE Psychiatric: depression Endocrine: NONE Blood Disorders: NONE Cancer(s): NONE PERSONAL FITNESS MANAGER/Reproductive: NONE Surgical History Pertinent Surgical History: Psychosocial History Where Do You Live? Home Services at Home: None Smoking Status: Never Smoked ETOH Use: denies use Illicit Drug Use: denies illicit drug use Review of Systems Review of Systems: Constitutional: No fever, sweats or weight loss ENMT: No sore throat Cardiovascular: No chest pain, palpitations or leg swelling Respiratory: No shortness of breath, cough, or sputum or dyspnea on exertion GI: No GERD or bleeding per rectum : No dysuria or hematuria Musculoskeletal: No new muscle weakness, bone or joint pain Skin / Breast: No jaundice, rashes or itching Psychiatric: No history of drug or alcohol abuse no depression or anxiety Hematologic / lymphatic system: No problems with excessive bleeding, bruising, or blood clots Exam & Diagnostic Data Vital Signs and I&O I reviewed Vital Signs Date Time Temp Pulse Resp B/P B/P Pulse O2 O2 Flow FiO2 Mean Ox Delivery Rate 05/09 0414 97.8 68 20 130/96 97 Room Air 05/09 0400 97 Room Air 05/09 0259 98.3 76 20 106/93 98 Room Air 05/08 2310 98 Room Air 05/08 2157 98.0 71 20 122/75 97 Room Air I reveiewed Intake & Output 05/09 1600 05/09 0800 05/09 0000 05/08 1600 05/08 0800 05/08 0000 Intake Total 400 Output Total Balance 400 Intake, IV 400 Intake, Oral 0 Number 0 Bowel Movements Patient 180 lb 180 lb Weight Weight Reported by Patient Reported by Patient Measurement Method Physical Exam: Constitutional: pleasant, no acute distress, conversant Eyes: sclera anicteric ENMT: ears and nose atraumatic, moist mucous membranes, good dentition, no lip lesions Neck: Supple, trachea is midline, no cervical or supraclavicular adenopathy and no palpable thyromegaly Cardiovascular: S1, S2, no murmurs, no peripheral edema Respiratory: clear to auscultation with normal respiratory effort and no intercostal retractions GI: abdomen soft, mild focal subxiphoid discomfort no rebound, nondistended, no palpable hepatosplenomegaly Extremities / lymphatics: symmetrically warm, free range of motion no peripheral edema, no cervical, supraclavicular, axillary, or inguinal adenopathy Musculoskeletal: Normal gait and station, no digital cyanosis, good muscle strength and tone no atrophy, motor grossly 5 out of 5 throughout Skin: no jaundice, no rashes warm, nondiaphoretic, no areas of erythema or induration Psychiatric: mood and affect are appropriate and alert and oriented to person place and time Last 24 Hours of Labs: I reviewd Laboratory Tests 05/09 05/09 I 1025 0700 Chemistry Sodium (137 - 145 mmol/L) 139 Potassium (3.5 - 5.1 mmol/L) 4.2 Chloride (98 - 107 mmol/L) 107 Carbon Dioxide (22 - 30 mmol/L) 20 L Anion Gap (5 - 16) 12 BUN (7 - 17 mg/dL) 8 Creatinine (0.5 - 1.0 mg/dL) 0.5 Estimated GFR (>60 ml/min) > 60 BUN/Creatinine Ratio (7 - 25 %) 16.0 Total Bilirubin (0.2 - 1.3 mg/dL) 3.0 H Direct Bilirubin (< 0.4 mg/dL) 2.1 H AST (14 - 36 U/L) 159 H ALT (9 - 52 U/L) 445 H Alkaline Phosphatase (<127 U/L) 147 H Total Protein (6.3 - 8.2 g/dL) 6.3 Albumin (3.5 - 5.0 g/dL) 3.8 Triglycerides (<150 mg/dL) 85 Cholesterol (<200 MG/DL) 153 LDL Cholesterol, Calc (65 - 129 mg/dL) 85 HDL Cholesterol (40 - 60 mg/dL) 51 Cholesterol/HDL Ratio (0.00 - 4.23 %) 3 Amylase (30 - 110 U/L) 687 H Lipase (23 - 300 U/L) 6106 H Coagulation PT (9.4 - 12.5 SEC) 11.3 INR (0.90 - 1.19) 1.08 Hematology CBC w Diff NO MAN DIFF REQ WBC (4.8 - 10.8 /CUMM) 11.0 H RBC (4.20 - 5.40 /CUMM) 4.67 Hgb (12.0 - 16.0 G/DL) 12.4 Hct (37 - 47 %) 38.0 MCV (81.0 - 99.0 FL) 81.3 MCH (27.0 - 31.0 PG) 26.6 L RDW (11.5 - 14.5 %) 13.7 Plt Count (130 - 400 /CUMM) 364 MPV (7.4 - 10.4 FL) 8.1 Gran % (42.2 - 75.2 %) 63.9 Lymphocytes % (20.5 - 51.1 %) 27.1 Monocytes % (1.7 - 9.3 %) 7.3 Eosinophils % (0 - 5 %) 1.3 Basophils % (0.0 - 2.0 %) 0.4 Absolute Granulocytes (1.4 - 6.5 /CUMM) 7.0 H Absolute Lymphocytes (1.2 - 3.4 /CUMM) 3.0 Absolute Monocytes (0.10 - 0.60 /CUMM) 0.8 H Absolute Eosinophils (0.0 - 0.7 /CUMM) 0.1 Absolute Basophils (0.0 - 0.2 /CUMM) 0 PUBS MCHC (33.0 - 37.0 G/DL) 32.7 L 05/08 05/08 2326 2250 Chemistry Sodium (137 - 145 mmol/L) 137 Potassium (3.5 - 5.1 mmol/L) 4.1 Chloride (98 - 107 mmol/L) 101 Carbon Dioxide (22 - 30 mmol/L) 22 Anion Gap (5 - 16) 13 BUN (7 - 17 mg/dL) 12 Creatinine (0.5 - 1.0 mg/dL) 0.6 Estimated GFR (>60 ml/min) > 60 BUN/Creatinine Ratio (7 - 25 %) 20.0 Glucose (65 - 99 mg/dL) 119 H Calcium (8.4 - 10.2 mg/dL) 9.5 Total Bilirubin (0.2 - 1.3 mg/dL) 2.6 H Direct Bilirubin (< 0.4 mg/dL) 1.8 H AST (14 - 36 U/L) 230 H ALT (9 - 52 U/L) 572 H Alkaline Phosphatase (<127 U/L) 194 H Total Protein (6.3 - 8.2 g/dL) 8.2 Albumin (3.5 - 5.0 g/dL) 4.7 Globulin (1.9 - 4.2 gm/dL) 3.5 Albumin/Globulin Ratio (1.1 - 2.2 %) 1.3 Amylase (30 - 110 U/L) 543 H Lipase (23 - 300 U/L) 9721 H Hematology CBC w Diff NO MAN DIFF REQ WBC (4.8 - 10.8 /CUMM) 11.8 H RBC (4.20 - 5.40 /CUMM) 5.06 Hgb (12.0 - 16.0 G/DL) 13.2 Hct (37 - 47 %) 40.6 MCV (81.0 - 99.0 FL) 80.2 L MCH (27.0 - 31.0 PG) 26.0 L RDW (11.5 - 14.5 %) 13.5 Plt Count (130 - 400 /CUMM) 409 H MPV (7.4 - 10.4 FL) 7.9 Gran % (42.2 - 75.2 %) 74.2 Lymphocytes % (20.5 - 51.1 %) 17.4 L Monocytes % (1.7 - 9.3 %) 7.0 Eosinophils % (0 - 5 %) 1.2 Basophils % (0.0 - 2.0 %) 0.2 Absolute Granulocytes (1.4 - 6.5 /CUMM) 8.7 H Absolute Lymphocytes (1.2 - 3.4 /CUMM) 2.1 Absolute Monocytes (0.10 - 0.60 /CUMM) 0.8 H Absolute Eosinophils (0.0 - 0.7 /CUMM) 0.1 Absolute Basophils (0.0 - 0.2 /CUMM) 0 PUBS MCHC (33.0 - 37.0 G/DL) 32.4 L Urines Urinalysis MOD H Urine Color (YEL,AMB,STR) YEL Urine Clarity (CLEAR) HAZY H Urine pH (5.0 - 8.0) 6.0 Ur Specific [place] (1.001 - 1.035) 1.025 Urine Protein (NEG,<30 MG/DL) TRACE H Urine Ketones (NEG) 15 H Urine Nitrite (NEG) NEG Urine Bilirubin (NEG) NEG@ICTO Urine Urobilinogen (0.1 - 1.0 EU/dl) 2.0 H Ur Leukocyte Esterase (NEG) NEG Ur Microscopic SEDIMENT EXAMINED Urine RBC (0 - 5 /HPF) 1-3 Urine WBC (0 - 2 /HPF) 1-3 H Ur Epithelial Cells (NONE,FEW) RARE Urine Hemoglobin (NEG) MOD H Urine Glucose (N MG/DL) NEG Urine Test NEGATIVE Assessment/Plan Assessment/Plan I reviewed on PACS myself the CT scan and ultrasound done earlier today also she had a CT scan on the fourth, on the CT the gallbladder looks similar between the 2 CAT scans it has not enlarged and gotten thickened there are some calcifications within it is not dilated on the ultrasound it doesn't appear thickened either My impression is symptomatic gallstones. The story is typical except for the lack of a clear food source. Her situation is not too uncommon there are signs of choledocholithiasis and gallstone pancreatitis. The pancreas did not appear grossly inflamed on the imaging, before planning surgery we have to make sure that her bile duct is cleared of stones repeat LFTs are still elevated and she is due for an MRCP but she might need a therapeutic ERCP. In the meantime monitor for signs of cholangitis which she does not have as yet, and monitor I's and O's I don't feel she needs IV fluids running that high in her case. With respect to the gallbladder, the current standard of care is removal of the gallbladder laparoscopically, preferably not emergently. Once they become symptomatic, gallstones can lead to complications such as cholecystitis, pancreatitis and cholangitis and rarely others, her story does have hints of this but she does not have acute cholecystitis. I explained the nature and possibility of retained stones, and rarely, persistent postoperative diarrhea. I jose l a diagram illustrating how the stones cause problems and how the anatomy and inflammation can make the surgery more difficult, sometimes requiring an open procedure, and rarely to repair a bile duct injury leading to significant morbidity and even mortality. This in our practice is exceedingly rare, but other more common risks were also discussed such as infection, injury to other surrounding structures such as bowel and blood vessels. We also discussed the potential risks, benefits and alternatives to the procedure and surgery in general, issues that included but were not limited to, anesthetic risks hemorrhage requiring transfusion, the risk of transfusion itself, infection, heart attack, stroke, . Problem List: 1. Choledocholithiasis 2. Gallstone pancreatitis Consult Acknowledgment - Thank you for your consult request.
[2017-05-09 14:33] VITALS: BP 122/80
[2017-05-09 22:14] VITALS: BP 112/74
[2017-05-10 06:31] VITALS: BP 110/56
--- NOTE | 2017-05-10 07:38 | PN- Housestaff ---
SALIMA BORDEN,[facility] 05/10/17 0738: Subjective Follow-up For: Choledocholithiasis Pancreatitis Complaints: nasea Subjective: I have seen and examined the patient. The patient was lying in the bed. She complains of back pain because of the back. She does not complain of any epigastric or right right upper quadrant pain. She complains of itching in her hands. She is nothing by mouth in anticipation of ERCP. She does complain of nausea. She does not complain of shortness of breath chest pain or palpitations. Review of Systems Constitutional: Denies: chills, diaphoresis, fever, malaise. Cardiovascular: Denies: chest pain, palpitations. Respiratory: Denies: hemoptysis, short of breath. Gastrointestinal: Denies: abdominal pain, constipation, nausea. Genitourinary: Reports: no symptoms. Musculoskeletal: Reports: back pain. Skin: Reports: no symptoms. Comments: Itching in her hands Objective Last 24 Hrs of Vital Signs/I&O Vital Signs Date Time Temp Pulse Resp B/P B/P Pulse O2 O2 Flow FiO2 Mean Ox Delivery Rate 05/10 0631 98.7 69 20 110/56 97 Room Air 05/09 2214 98.7 60 20 112/74 98 05/09 1433 98.0 58 20 122/80 98 Room Air Intake & Output 05/10 1600 05/10 0800 05/10 0000 Intake Total 800 730 Output Total 550 725 Balance 250 5 Intake, IV 800 450 Intake, Oral 280 Output, Urine 550 725 Physical Exam General Appearance: Alert, Oriented X3, Cooperative Skin: No Rashes, No Breakdown HEENT: Atraumatic Cardiovascular: Regular Rate, Normal S1, Normal S2, No Murmurs Lungs: Clear to Auscultation, Normal Air Movement Abdomen: Normal Bowel Sounds, Soft, No Tenderness Neurological: Normal Speech Current Medications: Current Medications Sig/Willem Start time Last Medication Dose Route Stop Time Status Admin Acetaminophen 1,000 MG Q6P PRN 05/09 1515 AC N/A 1 UNIT IV Acetaminophen 650 MG Q4P PRN 05/09 1330 DC PO Enoxaparin Sodium 40 MG DAILY 05/09 1000 AC 05/10 SC 0757 Ketorolac 30 MG ONCE PRN 05/09 1330 DC 05/09 Tromethamine IV 1330 Lactated Ringer's 1,000 ML .Q10H 05/09 0845 DC 05/10 IV 05/10 0800 0100 Morphine Sulfate 2 MG Q6P PRN 05/09 1330 AC 05/10 IV 0751 Patient Medication 1 ED .STK-MED ONE 05/09 1423 UT Teaching ED 05/09 1424 Last 24 Hrs of Lab/[place] Results Last 24 Hrs of Labs/Mics: Laboratory Tests 05/10/17 0640: Anion Gap 11, Estimated GFR > 60, BUN/Creatinine Ratio 10.0, Total Bilirubin 3.2 H, Direct Bilirubin 2.2 H, AST 128 H, ALT 388 H, Alkaline Phosphatase 161 H , Total Protein 7.0, Albumin 4.1, Lipase 1320 H, PT 10.9, INR 1.04, CBC w Diff Pending, WBC Pending, RBC Pending, Hgb Pending, Hct Pending, MCV Pending, MCH Pending, RDW Pending, Plt Count Pending, MPV Pending, PUBS MCHC Pending Assessment/Plan Assessment: Assessment The pt is a 37-year-old female who has been having symptoms of biliary colic for the past several months worsened over the past week presents now with evidence of gallstone pancreatitis likely from a passed gallstone as per GI.Her bilirubin was mildly elevated on admission.She is without evidence of cholangitis as she has been afebrile and stable since admission. Pertinent data -elevated AST 230, ALT 572, ALP 194, amylase 543, and lipase 9721 most likely pancreatitis secondary to gallstone -CT Cholelithiasis without evidence for acute cholecystitis. There is mild dilatation of the common bile duct without filling defects seen. Unremarkable appearance of the pancreas. -U/S 1. The liver has diffusely increased echogenicity consistent with hepatic steatosis. 2. There are multiple gallstones noted in the gallbladder, without evidence of acute cholecystitis. The CBD is moderately distended at 0.9 cm. Plan -IV hydration with lactated Ringer solution 250ML/HR , switched to 100ml/hr -LFTs are improving except for TOTAL bilirubin3.2 -waiting for ERCP -off of antibiotics as per GI reccs -will notify GI for signs of cholangitis such as high fevers or hemodynamic instability. -After the ERCP, will continue to monitor her LFTs. -She will require cholecystectomy nonemergent as per gen surgery Pain management tylenol 1000 q6 ketorolac 30 mg morphine 2 mg q6 Problem List: 1. Cholelithiases 2. Gallstone pancreatitis 3. Pancreatitis Pain Ratin Pain Location: epigastrium ruq Pain Goal: Pain 4 or less Pain Plan: tylenol 1000 q6 ketorolac 30 mg morphine 2 mg q6 Tomorrow's Labs & Rationales: cbc bep lfts AWILDA DEVRIES MD 05/10/17 1202: Attending MD Review Statement Attending Statement Attending MD Statement: examined this patient, discuss w/resident/PA/HELIARC WELDER, agreed w/resident/PA/HELIARC WELDER, reviewed EMR data (avail), discussed with nursing, discussed with case mgmt, reviewed images, amended to note Attending Assessment/Plan: Patient seen and examined, feels okay. Still feels nauseous. Bilirubin Rising. Patient Is Scheduled for ERCP Today. Vital Signs Date Time Temp Pulse Resp B/P B/P Pulse O2 O2 Flow FiO2 Mean Ox Delivery Rate 05/10 0631 98.7 69 20 110/56 97 Room Air 05/09 2214 98.7 60 20 112/74 98 05/09 1433 98.0 58 20 122/80 98 Room Air on exam; aox3, nad. cv; s1,s2, rrr resp; clear abd; soft, nt, bs+ ext; no edema. Laboratory Tests 05/10 0640 Chemistry Sodium (137 - 145 mmol/L) 138 Potassium (3.5 - 5.1 mmol/L) 4.1 Chloride (98 - 107 mmol/L) 105 Carbon Dioxide (22 - 30 mmol/L) 23 Anion Gap (5 - 16) 11 BUN (7 - 17 mg/dL) 5 L Creatinine (0.5 - 1.0 mg/dL) 0.5 Estimated GFR (>60 ml/min) > 60 BUN/Creatinine Ratio (7 - 25 %) 10.0 Total Bilirubin (0.2 - 1.3 mg/dL) 3.2 H Direct Bilirubin (< 0.4 mg/dL) 2.2 H AST (14 - 36 U/L) 128 H ALT (9 - 52 U/L) 388 H Alkaline Phosphatase (<127 U/L) 161 H Total Protein (6.3 - 8.2 g/dL) 7.0 Albumin (3.5 - 5.0 g/dL) 4.1 Lipase (23 - 300 U/L) 1320 H Coagulation PT (9.4 - 12.5 SEC) 10.9 INR (0.90 - 1.19) 1.04 Hematology CBC w Diff NO MAN DIFF REQ WBC (4.8 - 10.8 /CUMM) 6.6 RBC (4.20 - 5.40 /CUMM) 4.64 Hgb (12.0 - 16.0 G/DL) 12.2 Hct (37 - 47 %) 37.4 MCV (81.0 - 99.0 FL) 80.6 L MCH (27.0 - 31.0 PG) 26.3 L RDW (11.5 - 14.5 %) 13.7 Plt Count (130 - 400 /CUMM) 382 MPV (7.4 - 10.4 FL) 8.3 Gran % (42.2 - 75.2 %) 44.0 Lymphocytes % (20.5 - 51.1 %) 44.5 Monocytes % (1.7 - 9.3 %) 8.0 Eosinophils % (0 - 5 %) 2.8 Basophils % (0.0 - 2.0 %) 0.7 Absolute Granulocytes (1.4 - 6.5 /CUMM) 2.9 Absolute Lymphocytes (1.2 - 3.4 /CUMM) 2.9 Absolute Monocytes (0.10 - 0.60 /CUMM) 0.5 Absolute Eosinophils (0.0 - 0.7 /CUMM) 0.2 Absolute Basophils (0.0 - 0.2 /CUMM) 0 PUBS MCHC (33.0 - 37.0 G/DL) 32.6 L A/P; 37 y/o F with pmh sig gastritis, depression admitted with abd pain, acute pancreatitis, gall stones. Bilirubin kept on rising. As discussed with GI, plan for ERCP today. Patient has been seen by surgery and ultimately she will require cholecystectomy. That might not happen emergently but might happen electively at a later date. After the ERCP, will continue to monitor her LFTs. Patient has been watched off of antibiotics. DVT px; Lovenox.
[2017-05-10 08:36] LABS: PT 10.9 SEC (9.4-12.5)
[2017-05-10 10:39] LABS: ABSOLUTE BASOPHIL COUNT 0 /CUMM (0.0-0.2); ABSOLUTE EOSINOPHIL COUNT 0.2 /CUMM (0.0-0.7); ABSOLUTE GRANULOCYTE CT 2.9 /CUMM (1.4-6.5); ABSOLUTE LYMPH COUNT 2.9 /CUMM (1.2-3.4); ABSOLUTE MONOCYTE COUNT 0.5 /CUMM (0.10-0.60); BASOPHIL % 0.7 % (0.0-2.0); EOSINOPHIL % 2.8 % (0-5); HEMATOCRIT 37.4 % (37-47); MEAN CORPUSCULAR HGB 26.3 PG (27.0-31.0); MEAN CORPUSCULAR HGB CONC 32.6 G/DL (33.0-37.0); MEAN CORPUSCULAR VOLUME 80.6 FL (81.0-99.0); MEAN PLATELET VOLUME 8.3 FL (7.4-10.4); PLATELET COUNT 382 /CUMM (130-400); RBC DISTRIBUTION WIDTH 13.7 % (11.5-14.5); RED BLOOD CELL CT 4.64 /CUMM (4.20-5.40); WHITE BLOOD CELL COUNT 6.6 /CUMM (4.8-10.8)
--- NOTE | 2017-05-10 11:57 | PN- Student ---
Subjective Subjective: S: Patient is a 37 y-o female with hisotry of gastritis, depression and gallstones, is on his hospitalization day #2 due to gallstone prancreatitis. Patient presents this morning with itching on her both hands, back pain and nauseas. Patient states that the pain is related to prolonged bed rest. Patient denies headaches, abdominal pain, vomits since two days ago, diarrhea, constipation, heartburns, SOB or chest pain. Patient states that last night ate soup and it went well with no pain related afterwards. Patient is on mrophine and antinausea medication that she states that help her significantly. Current Medications Sig/Willem Start time Last Medication Dose Route Stop Time Status Admin Acetaminophen 1,000 MG Q6P PRN 05/09 1515 AC N/A 1 UNIT IV Acetaminophen 650 MG Q4P PRN 05/09 1330 DC PO Enoxaparin Sodium 40 MG DAILY 05/09 1000 AC 05/10 SC 0757 Ketorolac 30 MG ONCE PRN 05/09 1330 DC 05/09 Tromethamine IV 1330 Lactated Ringer's 1,000 ML .Q10H 05/09 0845 DC 05/10 IV 05/10 0800 0100 Morphine Sulfate 2 MG Q6P PRN 05/09 1330 AC 05/10 IV 0751 Patient Medication 1 ED .STK-MED ONE 05/09 1423 PR Teaching ED 05/09 1424 Review of Systems Constitutional: Denies: chills, weakness, fever, malaise, wheight loss. Cardiovascular: Denies: chest pain, palpitations. Respiratory: Denies: hemoptysis, SOB, orthopnea Gastrointestinal: Denies: abdominal pain, vomits, diarrhea or constripation. Genitourinary: Denies: hematuria, dysuria, color changes. Musculoskeletal: Reports: back pain. Skin: Reports: pruritus on hands Denies: abrasion, bruises Objective Objective: Last 24 hour VS and I&O: Vital Signs Date Time Temp Pulse Resp B/P B/P Pulse O2 O2 Flow FiO2 Mean Ox Delivery Rate 05/10 0631 98.7 69 20 110/56 97 Room Air 05/09 2214 98.7 60 20 112/74 98 05/09 1433 98.0 58 20 122/80 98 Room Air Intake & Output 05/10 1600 05/10 0800 05/10 0000 Intake Total 800 730 Output Total 550 725 Balance 250 5 Intake, IV 800 450 Intake, Oral 280 Output, Urine 550 725 Physical Exam General Appearance: Alert, Oriented X3, Cooperative Skin: No Rashes, No Breakdown, No dryness, No skin discoloration or jaundice HEENT: Atraumatic, no tender under palpation of scalp and neck. EOMI, PERRL, No jaudice noted on eyes. Cardiovascular: Normal JVD, Normal chest shape, Pulse: RRR, Normal S1, Normal S2 , No Murmurs or additional sounds. Lungs: Clear to Auscultation Bilaterally, Normal Air Movement Abdomen: Normal shape, no bruises, mass or change in color. BS+. Tympanic to percussion. Tender to deep palpation in RUQ and Epigastric region, Dia's sign positive, Courvoisier's sign negative. Extremities: No edema, abrasion, color change or ulcers in any extremity. Pulses palpable X4. Neurological: Congruent speech, CN intact II-XII, Sensroy intact in extremities x4, motor streght intact, Normal posture. Diagnostic Data: CT ABD & PELVIS W IV CONTRAST: 05/09/17, 02:07 IMPRESSION: Cholelithiasis without evidence for acute cholecystitis. There is mild dilatation of the common bile duct without filling defects seen. Unremarkable appearance of the pancreas. Abdominal U/S: 05/09/17, 10:27 IMPRESSION: 1. The liver has diffusely increased echogenicity consistent with hepatic steatosis. 2. There are multiple gallstones noted in the gallbladder, without evidence of acute cholecystitis. The CBD is moderately distended at 0.9 cm. Results Results: Laboratory Tests 05/10/17 0640: Anion Gap 11, Estimated GFR > 60, BUN/Creatinine Ratio 10.0, Total Bilirubin 3.2 H, Direct Bilirubin 2.2 H, AST 128 H, ALT 388 H, Alkaline Phosphatase 161 H , Total Protein 7.0, Albumin 4.1, Lipase 1320 H, PT 10.9, INR 1.04, CBC w Diff NO MAN DIFF REQ, RBC 4.64, MCV 80.6 L, MCH 26.3 L, RDW 13.7, MPV 8.3, Gran % 44.0, Lymphocytes % 44.5, Monocytes % 8.0, Eosinophils % 2.8, Basophils % 0.7, Absolute Granulocytes 2.9, Absolute Lymphocytes 2.9, Absolute Monocytes 0.5, Absolute Eosinophils 0.2, Absolute Basophils 0, PUBS MCHC 32.6 L 05/09/17 1025: Total Bilirubin 3.0 H, Direct Bilirubin 2.1 H, AST 159 H, ALT 445 H, Alkaline Phosphatase 147 H, Total Protein 6.3, Albumin 3.8, PT 11.3, INR 1.08 05/09/17 0700: Anion Gap 12, Estimated GFR > 60, BUN/Creatinine Ratio 16.0, Triglycerides 85, Cholesterol 153, LDL Cholesterol, Calc 85, HDL Cholesterol 51, Cholesterol/HDL Ratio 3, Amylase 687 H, Lipase 6106 H, CBC w Diff NO MAN DIFF REQ, RBC 4.67, MCV 81.3, MCH 26.6 L, RDW 13.7, MPV 8.1, Gran % 63.9, Lymphocytes % 27.1, Monocytes % 7.3, Eosinophils % 1.3, Basophils % 0.4, Absolute Granulocytes 7.0 H, Absolute Lymphocytes 3.0, Absolute Monocytes 0.8 H, Absolute Eosinophils 0.1 , Absolute Basophils 0, PUBS MCHC 32.7 L 05/08/17 2326: Anion Gap 13, Estimated GFR > 60, BUN/Creatinine Ratio 20.0, Glucose 119 H, Calcium 9.5, Total Bilirubin 2.6 H, Direct Bilirubin 1.8 H, AST 230 H, ALT 572 H, Alkaline Phosphatase 194 H, Total Protein 8.2, Albumin 4.7, Globulin 3.5, Albumin/Globulin Ratio 1.3, Amylase 543 H, Lipase 9721 H, CBC w Diff NO MAN DIFF REQ, RBC 5.06, MCV 80.2 L, MCH 26.0 L, RDW 13.5, MPV 7.9, Gran % 74.2 , Lymphocytes % 17.4 L, Monocytes % 7.0, Eosinophils % 1.2, Basophils % 0.2, Absolute Granulocytes 8.7 H, Absolute Lymphocytes 2.1, Absolute Monocytes 0.8 H, Absolute Eosinophils 0.1, Absolute Basophils 0, PUBS MCHC 32.4 L 05/08/17 2250: Urinalysis MOD H, Urine Color YEL, Urine Clarity HAZY H, Urine pH 6.0, Ur Specific [place] 1.025, Urine Protein TRACE H, Urine Ketones 15 H, Urine Nitrite NEG, Urine Bilirubin NEG@ICTO, Urine Urobilinogen 2.0 H, Ur Leukocyte Esterase NEG, Ur Microscopic SEDIMENT EXAMINED, Urine RBC 1-3, Urine WBC 1-3 H, Ur Epithelial Cells RARE, Urine Hemoglobin MOD H, Urine Glucose NEG, Urine Test NEGATIVE Assessment/Plan Assessment: Patient is a 37 y-o female who has a history of gastritis and drepssion is on her hospitalization day #2 due to severe abdominal pain and vomits x2, possibble pancreatitis. Patient this morning states having back pain and pruritus on both hands. Patient was admitted and treated under IVF due to elevation of Pancreas enzymes (Amylase and Lipase, 543 and 9721 respectively). Patient is trending down lipase (1320) after treatment, but her Total and Direct bilirubin are trending up this mornin.6 to 3.2 and 1.8 to 2.2 respectively. Abdominal ultrasound performed yesterday shows cholelithiasis with dilated CBD without signs of acute cholecystitis. Problem List: 1. Gallstone Pancreatitis 2. Back Pain 1. Gallstone Pancreatitis A. This is the most likely diagnosis due to patient abdominal pain related with vomits, increased Total Bilirubin 3.2 , Direct Bilirubin 2.2 , AST 128 , ALT 388 , Alkaline Phosphatase 161 and Lipase 1320 H. Also a confirmation was done with evidence of dilated CBD (9mm in diameter), cholelithiasis and no acute cholecystitis. The direct obstruction of CBD make stagnation of Biliary fluids and pancreatic juices, resulting in damage and inflammation of pancreas ( elevated lipase), liver (elevated AST and ALT) and gallbladder (Elevated T.Jony and D.Jony). This manifestations could be expressed also with any pancretic or CBD associted malignancy that obstruct the biliary and pancreatic flow to Duodenum through the Ampulla of Vater. There is no malignancy symptoms like weight loss or night sweats and no Courvoisier's sign presents either. B: Plan to keep IVF, Morphine 2mg Q6 PRN IV for abdominal pain and perform an ERCP to rule out any other cause of elevated pancreatic and liver enzymes. If any stone presents in CBD, should be removed and then, surgery should evaluate her for a possible Cholecystectomy as outpatient or inpatient stay. 2. Back Pain: A: Patient states that she didnt move from bed throughout the day, only for restroom. Patient expresses having a back pain associated with bed posture. This could be present as Muscle Spasm, but patient feels better after pain medication. B: Plan: Patient should be encourage to be out of bed and ambulate. Keep Morphine to help with back pain also.
--- NOTE | 2017-05-10 14:11 | PN- General Surgery ---
Subjective Subjective: Follow-up of gallstone pancreatitis, patient still nauseous less abdominal pain subxiphoid yesterday but this morning she's having some back pain still requiring morphine no vomiting no sweats Objective Vital Signs and I&Os I reviewed I reviewed Vital Signs Date Time Temp Pulse Resp B/P B/P Pulse O2 O2 Flow FiO2 Mean Ox Delivery Rate 05/10 0631 98.7 69 20 110/56 97 Room Air 05/09 2214 98.7 60 20 112/74 98 05/09 1433 98.0 58 20 122/80 98 Room Air I reviewed Intake & Output 05/10 1600 05/10 0800 05/10 0000 05/09 1600 05/09 0800 05/09 0000 Intake Total 576 961 4108 400 Output Total 550 725 Balance 250 5 1500 400 Intake, IV 032 435 9768 400 Intake, Oral 280 0 Number 0 Bowel Movements Output, Urine 550 725 Patient 180 lb 180 lb Weight Weight Reported by Patient Reported by Patient Measurement Method Physical Exam: Constitutional: no acute distress no pain Eyes: sclera anicteric ENMT: moist mucous membranes Cardiovascular: S1-S2 no murmurs no peripheral edema Respiratory: clear to auscultation with normal respiratory effort and no intercostal retractions GI: abdomen soft nontender nondistended Extremities / lymphatics: free range of motion no peripheral edema Skin: no jaundice no rashes warm, nondiaphoretic Psychiatric: mood and affect are appropriate and alert and oriented to person place and time Current Medications: I reviewed Current Medications Sig/Willem Start time Last Medication Dose Route Stop Time Status Admin Acetaminophen 1,000 MG Q6P PRN 05/09 1515 AC N/A 1 UNIT IV Acetaminophen 650 MG Q4P PRN 05/09 1330 DC PO Enoxaparin Sodium 40 MG DAILY 05/09 1000 AC 05/10 SC 0757 Lactated Ringer's 1,000 ML .Q10H 05/09 0845 DC 05/10 IV 05/10 0800 0100 Morphine Sulfate 2 MG Q6P PRN 05/09 1330 AC 05/10 IV 0751 Patient Medication 1 ED .STK-MED ONE 05/09 1423 TN Teaching ED 05/09 1424 Results Last 48 Hours of Labs: I reviewed Laboratory Tests 05/10 05/09 0640 1025 Chemistry Sodium (137 - 145 mmol/L) 138 Potassium (3.5 - 5.1 mmol/L) 4.1 Chloride (98 - 107 mmol/L) 105 Carbon Dioxide (22 - 30 mmol/L) 23 Anion Gap (5 - 16) 11 BUN (7 - 17 mg/dL) 5 L Creatinine (0.5 - 1.0 mg/dL) 0.5 Estimated GFR (>60 ml/min) > 60 BUN/Creatinine Ratio (7 - 25 %) 10.0 Total Bilirubin (0.2 - 1.3 mg/dL) 3.2 H 3.0 H Direct Bilirubin (< 0.4 mg/dL) 2.2 H 2.1 H AST (14 - 36 U/L) 128 H 159 H ALT (9 - 52 U/L) 388 H 445 H Alkaline Phosphatase (<127 U/L) 161 H 147 H Total Protein (6.3 - 8.2 g/dL) 7.0 6.3 Albumin (3.5 - 5.0 g/dL) 4.1 3.8 Lipase (23 - 300 U/L) 1320 H Coagulation PT (9.4 - 12.5 SEC) 10.9 11.3 INR (0.90 - 1.19) 1.04 1.08 Hematology CBC w Diff NO MAN DIFF REQ WBC (4.8 - 10.8 /CUMM) 6.6 RBC (4.20 - 5.40 /CUMM) 4.64 Hgb (12.0 - 16.0 G/DL) 12.2 Hct (37 - 47 %) 37.4 MCV (81.0 - 99.0 FL) 80.6 L MCH (27.0 - 31.0 PG) 26.3 L RDW (11.5 - 14.5 %) 13.7 Plt Count (130 - 400 /CUMM) 382 MPV (7.4 - 10.4 FL) 8.3 Gran % (42.2 - 75.2 %) 44.0 Lymphocytes % (20.5 - 51.1 %) 44.5 Monocytes % (1.7 - 9.3 %) 8.0 Eosinophils % (0 - 5 %) 2.8 Basophils % (0.0 - 2.0 %) 0.7 Absolute Granulocytes (1.4 - 6.5 /CUMM) 2.9 Absolute Lymphocytes (1.2 - 3.4 /CUMM) 2.9 Absolute Monocytes (0.10 - 0.60 /CUMM) 0.5 Absolute Eosinophils (0.0 - 0.7 /CUMM) 0.2 Absolute Basophils (0.0 - 0.2 /CUMM) 0 PUBS MCHC (33.0 - 37.0 G/DL) 32.6 L 05/09 05/08 0700 2326 Chemistry Sodium (137 - 145 mmol/L) 139 137 Potassium (3.5 - 5.1 mmol/L) 4.2 4.1 Chloride (98 - 107 mmol/L) 107 101 Carbon Dioxide (22 - 30 mmol/L) 20 L 22 Anion Gap (5 - 16) 12 13 BUN (7 - 17 mg/dL) 8 12 Creatinine (0.5 - 1.0 mg/dL) 0.5 0.6 Estimated GFR (>60 ml/min) > 60 > 60 BUN/Creatinine Ratio (7 - 25 %) 16.0 20.0 Glucose (65 - 99 mg/dL) 119 H Calcium (8.4 - 10.2 mg/dL) 9.5 Total Bilirubin (0.2 - 1.3 mg/dL) 2.6 H Direct Bilirubin (< 0.4 mg/dL) 1.8 H AST (14 - 36 U/L) 230 H ALT (9 - 52 U/L) 572 H Alkaline Phosphatase (<127 U/L) 194 H Total Protein (6.3 - 8.2 g/dL) 8.2 Albumin (3.5 - 5.0 g/dL) 4.7 Globulin (1.9 - 4.2 gm/dL) 3.5 Albumin/Globulin Ratio (1.1 - 2.2 %) 1.3 Triglycerides (<150 mg/dL) 85 Cholesterol (<200 MG/DL) 153 LDL Cholesterol, Calc (65 - 129 mg/dL) 85 HDL Cholesterol (40 - 60 mg/dL) 51 Cholesterol/HDL Ratio (0.00 - 4.23 %) 3 Amylase (30 - 110 U/L) 687 H 543 H Lipase (23 - 300 U/L) 6106 H 9721 H Hematology CBC w Diff NO MAN DIFF REQ NO MAN DIFF REQ WBC (4.8 - 10.8 /CUMM) 11.0 H 11.8 H RBC (4.20 - 5.40 /CUMM) 4.67 5.06 Hgb (12.0 - 16.0 G/DL) 12.4 13.2 Hct (37 - 47 %) 38.0 40.6 MCV (81.0 - 99.0 FL) 81.3 80.2 L MCH (27.0 - 31.0 PG) 26.6 L 26.0 L RDW (11.5 - 14.5 %) 13.7 13.5 Plt Count (130 - 400 /CUMM) 364 409 H MPV (7.4 - 10.4 FL) 8.1 7.9 Gran % (42.2 - 75.2 %) 63.9 74.2 Lymphocytes % (20.5 - 51.1 %) 27.1 17.4 L Monocytes % (1.7 - 9.3 %) 7.3 7.0 Eosinophils % (0 - 5 %) 1.3 1.2 Basophils % (0.0 - 2.0 %) 0.4 0.2 Absolute Granulocytes (1.4 - 6.5 /CUMM) 7.0 H 8.7 H Absolute Lymphocytes (1.2 - 3.4 /CUMM) 3.0 2.1 Absolute Monocytes (0.10 - 0.60 /CUMM) 0.8 H 0.8 H Absolute Eosinophils (0.0 - 0.7 /CUMM) 0.1 0.1 Absolute Basophils (0.0 - 0.2 /CUMM) 0 0 PUBS MCHC (33.0 - 37.0 G/DL) 32.7 L 32.4 L 07/10 2250 Urines Urinalysis MOD H Urine Color (YEL,AMB,STR) YEL Urine Clarity (CLEAR) HAZY H Urine pH (5.0 - 8.0) 6.0 Ur Specific [place] (1.001 - 1.035) 1.025 Urine Protein (NEG,<30 MG/DL) TRACE H Urine Ketones (NEG) 15 H Urine Nitrite (NEG) NEG Urine Bilirubin (NEG) NEG@ICTO Urine Urobilinogen (0.1 - 1.0 EU/dl) 2.0 H Ur Leukocyte Esterase (NEG) NEG Ur Microscopic SEDIMENT EXAMINED Urine RBC (0 - 5 /HPF) 1-3 Urine WBC (0 - 2 /HPF) 1-3 H Ur Epithelial Cells (NONE,FEW) RARE Urine Hemoglobin (NEG) MOD H Urine Glucose (N MG/DL) NEG Urine Test NEGATIVE Assessment/Plan Assessment/Plan Persistent pain and nausea but no fevers or leukocytosis but elevated LFTs and amylase lipase are not significantly changed thorax pain to her why be defer surgery at this point awaiting GI evaluation for ERCP and / or MRCP Problem List: 1. Gallstone pancreatitis 2. Choledocholithiasis
[2017-05-10 15:01] VITALS: BP 112/60
--- NOTE | 2017-05-10 19:32 | Proc Note ERCP ---
ERCP Procedure Procedure Date: 05/10/17 GI Procedure(s): ERCP with sphincterotomy/stone taproom attendant: Koko Riley M.D. ASA Classification: II Indications: Gallstone pancreatitis with persistent hyperbilirubinemia Instrument: duodenoscope Meds Received: KERLINE Patient's Tolerance: good Complications: none Procedure: The patient signed informed consent, was brought to the operating room and turned into the prone position, and was medicated. Pulse oximetry, blood pressure and cardiac monitoring were performed continuously throughout the procedure. The Olympus high-definition V duodenoscope was inserted into the mouth and advanced to the duodenum. The stomach was not examined. The duodenum was normal. There was a long somewhat redundant papilla. The pancreatic duct was not cannulated/injected. The common bile duct was cannulated and opacified. The cholangiogram demonstrated mild dilatation of the common bile duct and common hepatic duct, with normal hepatic ducts. The cystic duct and gallbladder were not opacified. 2 mobile filling defects were noted. A complete, bloodless sphincterotomy was performed. A moderate-sized yellow stone was removed with the bowed papillotome. 2 further stones and stone debris were extracted with an inflated extraction balloon. A final occlusion cholangiogram and sweep from bifurcation to duodenum were normal. Impression: * Choledocholithiasis, treated with sphincterotomy and balloon extraction Recommendations: * Follow-up LFTs * Cholecystectomy * Diet as per surgery
--- NOTE | 2017-05-10 22:48 | RADIOLOGY REPORT ---
EXAMINATION: INTRAOPERATIVE FLUOROSCOPIC GUIDANCE AND ABDOMEN CLINICAL INFORMATION: Gallstone pancreatitis. COMPARISON: 04/09/2017. TECHNIQUE: Fluoroscopic time was utilized in the OR for Dr. Riley. Fluoroscopic images were obtained in the AP projection. FINDINGS: Fluoroscopic guidance was provided during ERCP. The common duct was cannulated. Contrast material is identified. The common duct is prominent. There are several filling defects present, possibly leather goods sales representative of calculi. FLUOROSCOPY TIME: 3 minutes 33 seconds of fluoroscopic time was utilized for the entirety of this examination. IMPRESSION: Fluoroscopic guidance was provided during ERCP. The common duct was cannulated. Contrast material is identified. The common duct is prominent. There are several filling defects present, possibly leather goods sales representative of calculi.
[2017-05-10 22:54] VITALS: BP 114/62
[2017-05-11 06:00] VITALS: BP 112/64
--- NOTE | 2017-05-11 08:22 | PN- Housestaff ---
SALIMA BORDEN,[facility] 05/11/17 0821: Subjective Follow-up For: Choledocholithiasis Pancreatitis Complaints: back pain Subjective: I have seen and examined the patient. The patient is sitting comfortably in her bed. She is currently on a clear liquid diet. She is status post ERCP. She does not have any current complaints. However she does complain of back pain. Contributes that to the position she sleeps and hospital bed. She wants to know that if she is going for cholecystectomy today or not. Review of Systems Constitutional: Denies: chills, fever. Cardiovascular: Denies: chest pain, palpitations. Respiratory: Denies: short of breath. Gastrointestinal: Denies: abdominal pain, constipation. Genitourinary: Reports: no symptoms. Denies: dysuria. Musculoskeletal: Denies: back pain. Objective Last 24 Hrs of Vital Signs/I&O Vital Signs Date Time Temp Pulse Resp B/P B/P Pulse O2 O2 Flow FiO2 Mean Ox Delivery Rate 05/11 0600 98.1 66 18 112/64 96 Room Air 05/10 2254 98.5 65 18 114/62 97 Room Air 05/10 1501 97.7 56 18 112/60 97 Intake & Output 05/11 1600 05/11 0800 05/11 0000 Intake Total 800 1300 Output Total 400 Balance 800 900 Intake, IV 800 1300 Intake, Oral 0 Output, Urine 400 Physical Exam General Appearance: Alert, Oriented X3, Cooperative Neck: Supple Cardiovascular: Regular Rate, Normal S1, Normal S2 Lungs: Clear to Auscultation, Normal Air Movement Abdomen: Normal Bowel Sounds, Soft, No Tenderness Neurological: Normal Speech Extremities: No Clubbing, No Edema Current Medications: Current Medications Sig/Willem Start time Last Medication Dose Route Stop Time Status Admin Acetaminophen 1,000 MG .STK-MED ONE 05/10 1730 DC IV 05/10 1731 Acetaminophen 1,000 MG Q6P PRN 05/09 1515 AC N/A 1 UNIT IV Enoxaparin Sodium 40 MG DAILY 05/09 1000 AC 05/10 SC 0757 Fentanyl Citrate 100 MCG .STK-MED ONE 05/10 1730 DC IM 05/10 1731 Ketorolac 30 MG .STK-MED ONE 05/10 1730 DC Tromethamine IM 05/10 1731 Lactated Ringer's 1,000 ML .Q10H 05/10 1515 AC 05/11 IV 0339 Midazolam HCl 2 MG .STK-MED ONE 05/10 1730 DC IM 05/10 1731 Morphine Sulfate 2 MG Q6P PRN 05/09 1330 05/10 IV 0751 Ondansetron HCl 4 MG ONCE ONE 05/10 1645 DC 05/10 IV 05/10 1646 1653 Assessment/Plan Assessment: Assessment The pt is a 37-year-old female who has been having symptoms of biliary colic for the past several months worsened over the past week presents now with evidence of gallstone pancreatitis likely from a passed gallstone as per GI.Her bilirubin was mildly elevated on admission.She is without evidence of cholangitis as she has been afebrile and stable since admission. Pertinent data -elevated AST 230, ALT 572, ALP 194, amylase 543, and lipase 9721 most likely pancreatitis secondary to gallstone -CT Cholelithiasis without evidence for acute cholecystitis. There is mild dilatation of the common bile duct without filling defects seen. Unremarkable appearance of the pancreas. -U/S 1. The liver has diffusely increased echogenicity consistent with hepatic steatosis. 2. There are multiple gallstones noted in the gallbladder, without evidence of acute cholecystitis. The CBD is moderately distended at 0.9 cm. Plan -IV hydration with lactated Ringer solution 250ML/HR , switched to 100ml/hr -LFTs are improving -off of antibiotics as per GI reccs -will notify GI for signs of cholangitis such as high fevers or hemodynamic instability. -ERCP was done yesterday 3 stones were removed.Impression Choledocholithiasis, treated with sphincterotomy and balloon extraction -We will continue to monitor LFTs. -We have consulted surgical PA internal whether she is going for cholecystectomy inpatient versus outpatient -The patient is made nothing by mouth in anticipation of cholecystectomy -We are still awaiting general surgery recommendations. -we have gotten in touch with gen surg the patient will be going for cholecystectomy around 5 PM Pain management tylenol 1000 q6 ketorolac 30 mg morphine 2 mg q6 Problem List: 1. Gallstone pancreatitis Pain Ratin Pain Location: epigastric RIUQ Pain Goal: Pain 4 or less Pain Plan: tylenol 1000 q6 ketorolac 30 mg morphine 2 mg q Tomorrow's Labs & Rationales: cbc bep lfts KAYCE BORDEN,AWILDA 05/11/17 1230: Attending MD Review Statement Attending Statement Attending MD Statement: examined this patient, discuss w/resident/PA/CODE ENFORCEMENT OFFICER, agreed w/resident/PA/CODE ENFORCEMENT OFFICER, reviewed EMR data (avail), discussed with nursing, discussed with case mgmt, reviewed images, amended to note Attending Assessment/Plan: Patient seen and examined, feeling okay. Status post ERCP yesterday with extraction of 3 stones. Bilirubin improved today. Patient scheduled for laparoscopic cholecystectomy today. Vital Signs Date Time Temp Pulse Resp B/P B/P Pulse O2 O2 Flow FiO2 Mean Ox Delivery Rate 05/11 0600 98.1 66 18 112/64 96 Room Air 05/10 2254 98.5 65 18 114/62 97 Room Air 05/10 1501 97.7 56 18 112/60 97 on exam; aox3, nad. cv; s1, s2, rrr resp; clear abd; soft, nt, bs+ ext: no edema. Laboratory Tests 05/11 0715 Chemistry Sodium (137 - 145 mmol/L) 138 Potassium (3.5 - 5.1 mmol/L) 4.3 Chloride (98 - 107 mmol/L) 102 Carbon Dioxide (22 - 30 mmol/L) 22 Anion Gap (5 - 16) 15 BUN (7 - 17 mg/dL) 7 Creatinine (0.5 - 1.0 mg/dL) 0.5 Estimated GFR (>60 ml/min) > 60 BUN/Creatinine Ratio (7 - 25 %) 14.0 Total Bilirubin (0.2 - 1.3 mg/dL) 2.4 H Direct Bilirubin (< 0.4 mg/dL) 0.9 H AST (14 - 36 U/L) 138 H ALT (9 - 52 U/L) 374 H Alkaline Phosphatase (<127 U/L) 159 H Total Protein (6.3 - 8.2 g/dL) 7.4 Albumin (3.5 - 5.0 g/dL) 4.3 Hematology CBC w Diff NO MAN DIFF REQ WBC (4.8 - 10.8 /CUMM) 9.2 RBC (4.20 - 5.40 /CUMM) 5.01 Hgb (12.0 - 16.0 G/DL) 13.3 Hct (37 - 47 %) 40.2 MCV (81.0 - 99.0 FL) 80.2 L MCH (27.0 - 31.0 PG) 26.5 L RDW (11.5 - 14.5 %) 14.1 Plt Count (130 - 400 /CUMM) 386 MPV (7.4 - 10.4 FL) 8.2 Gran % (42.2 - 75.2 %) 55.2 Lymphocytes % (20.5 - 51.1 %) 37.4 Monocytes % (1.7 - 9.3 %) 5.4 Eosinophils % (0 - 5 %) 1.6 Basophils % (0.0 - 2.0 %) 0.4 Absolute Granulocytes (1.4 - 6.5 /CUMM) 5.1 Absolute Lymphocytes (1.2 - 3.4 /CUMM) 3.4 Absolute Monocytes (0.10 - 0.60 /CUMM) 0.5 Absolute Eosinophils (0.0 - 0.7 /CUMM) 0.1 Absolute Basophils (0.0 - 0.2 /CUMM) 0 PUBS MCHC (33.0 - 37.0 G/DL) 33.0 A/P; 37 y/o F with pmh sig gastritis, depression admitted with abd pain, acute pancreatitis, gall stones. Status post ERCP estimated extraction of 3 stones. Scheduled for laparoscopic cholecystectomy today. Continue on current medications, patient is not complaining of any pain. Currently nothing by mouth. After lap keke, will be started on diet as recommended by surgery. DVT px: Lovenox. Possible discharge tomorrow if remains stable.
[2017-05-11 09:03] LABS: ABSOLUTE BASOPHIL COUNT 0 /CUMM (0.0-0.2); ABSOLUTE EOSINOPHIL COUNT 0.1 /CUMM (0.0-0.7); ABSOLUTE GRANULOCYTE CT 5.1 /CUMM (1.4-6.5); ABSOLUTE LYMPH COUNT 3.4 /CUMM (1.2-3.4); ABSOLUTE MONOCYTE COUNT 0.5 /CUMM (0.10-0.60); BASOPHIL % 0.4 % (0.0-2.0); EOSINOPHIL % 1.6 % (0-5); GRANULOCYTE % 55.2 % (42.2-75.2); HEMATOCRIT 40.2 % (37-47); MEAN CORPUSCULAR HGB 26.5 PG (27.0-31.0); MEAN CORPUSCULAR VOLUME 80.2 FL (81.0-99.0); MEAN PLATELET VOLUME 8.2 FL (7.4-10.4); PLATELET COUNT 386 /CUMM (130-400); RBC DISTRIBUTION WIDTH 14.1 % (11.5-14.5); RED BLOOD CELL CT 5.01 /CUMM (4.20-5.40); WHITE BLOOD CELL COUNT 9.2 /CUMM (4.8-10.8)
--- NOTE | 2017-05-11 11:55 | PN- Student ---
Subjective Subjective: S: Patient is a 37 y-o female with a history of gastritis, depression and gallstones, is on her hospitalization day #3 due to gallstone pancreatitis. Patient is s/p ERCP and sphincterectomy done yesterday, with 3 stones removed from CBD. Patient this morning presents with no abdominal pain or any discomfort. Patient reports that itchiness on both hands have improved. Patient just expresses beeing hungry. No nauseas, vomits, diarrhea, headaches, palpitations, fevers or SOB. Current Medications Sig/Willem Start time Last Medication Dose Route Stop Time Status Admin Acetaminophen 1,000 MG .STK-MED ONE 05/10 1730 DC IV 05/10 1731 Acetaminophen 1,000 MG Q6P PRN 05/09 1515 AC N/A 1 UNIT IV Enoxaparin Sodium 40 MG DAILY 05/09 1000 AC 05/10 SC 0757 Fentanyl Citrate 100 MCG .STK-MED ONE 05/10 1730 DC IM 05/10 1731 Ketorolac 30 MG .STK-MED ONE 05/10 1730 DC Tromethamine IM 05/10 1731 Lactated Ringer's 1,000 ML .Q10H 05/10 1515 AC 05/11 IV 0339 Midazolam HCl 2 MG .STK-MED ONE 05/10 1730 DC IM 05/10 1731 Morphine Sulfate 2 MG Q6P PRN 05/09 1330 AC 05/10 IV 0751 Ondansetron HCl 4 MG ONCE ONE 05/10 1645 DC 05/10 IV 05/10 1646 1653 Review of Systems Constitutional: Denies: chills, weakness, fever, malaise, wheight loss. Cardiovascular: Denies: chest pain, palpitations. Respiratory: Denies: hemoptysis, SOB, orthopnea Gastrointestinal: Denies: abdominal pain, vomits, diarrhea or constripation. Genitourinary: Denies: hematuria, dysuria, color changes. Musculoskeletal: Reports: lower back pain. Skin: Reports: less pruritus on hands Denies: abrasion, bruises Objective Objective: Last 24 Hr Vital Signs and I&O: Vital Signs Date Time Temp Pulse Resp B/P B/P Pulse O2 O2 Flow FiO2 Mean Ox Delivery Rate 05/11 0600 98.1 66 18 112/64 96 Room Air 05/10 2254 98.5 65 18 114/62 97 Room Air 05/10 1501 97.7 56 18 112/60 97 Intake & Output 05/11 1600 05/11 0800 05/11 0000 Intake Total 800 1300 Output Total 400 Balance 800 900 Intake, IV 800 1300 Intake, Oral 0 Output, Urine 400 Physical Exam General Appearance: Alert, Oriented X3, Cooperative Skin: No Rashes, No Breakdown, No dryness, No skin discoloration or jaundice HEENT: Atraumatic, no tender under palpation of scalp and neck. EOMI, PERRL, No jaudice noted on eyes. Cardiovascular: Normal JVD, Normal chest shape, Pulse: RRR, Normal S1 and S2 heard, No Murmurs or additional sounds. Lungs: Clear to Auscultation Bilaterally, Normal Air Movement Abdomen: Normal shape, no bruises, mass or change in color. BS+. Tympanic to percussion. No Tender to palpation. Extremities: No edema, abrasion, color change or ulcers in any extremity. Pulses palpable X4. Neurological: Congruent speech, CN intact II-XII, Sensroy intact in extremities x4, motor streght intact, Normal posture. Results Results: Laboratory Tests 05/11/17 0715: Anion Gap 15, Estimated GFR > 60, BUN/Creatinine Ratio 14.0, Total Bilirubin 2.4 H, Direct Bilirubin 0.9 H, AST 138 H, ALT 374 H, Alkaline Phosphatase 159 H , Total Protein 7.4, Albumin 4.3, CBC w Diff NO MAN DIFF REQ, RBC 5.01, MCV 80.2 L, MCH 26.5 L, RDW 14.1, MPV 8.2, Gran % 55.2, Lymphocytes % 37.4, Monocytes % 5.4, Eosinophils % 1.6, Basophils % 0.4, Absolute Granulocytes 5.1, Absolute Lymphocytes 3.4, Absolute Monocytes 0.5, Absolute Eosinophils 0.1, Absolute Basophils 0, PUBS MCHC 33.0 Diagnostic Data: ERCP with sphincterotomy/stone extraction: 05/10/17 19:32 Impression: * Choledocholithiasis, treated with sphincterotomy and balloon extraction By: DUSTIN LUNA MD Assessment/Plan Assessment: Assessment: Patient is a 37 y-o female who has a history of gastritis and drepssion is on her hospitalization day #3 due to gallstones pancreatitis. Patient is s/p ERCP and sphincterectomy with 3 stones removed from CBD, she presents this morning having no abdominal pain, less pruritus and same lower back pain from yesterday. Patient is trending down her Total and Direct bilirubin, 3.2 to 2.4 and 2.2 to 0.9 respectively. No signs of inflammation of gallbladder (fever, leukocytosis or pain). Abdominal ultrasound performed before shows cholelithiasis without signs of acute cholecystitis. Problem List: 1. Gallstone Pancreatitis 2. Back Pain 1. Gallstone Pancreatitis A. This is the most likely diagnosis after an ERCP with sphincterectomy with 3 stones romeved from CBD was done yesterday. Total Bilirubin 2.4 H, Direct Bilirubin 0.9 H, AST 138 H, ALT 374 H, Alkaline Phosphatase 159 H. It was noticed an improvemnt in total bilirubin and direct bilirubin levels. A previous abdominal U/S shows cholelithiasis. The direct obstruction of CBD make stagnation of Biliary fluids and pancreatic juices, resulting in damage and inflammation of pancreas (elevated lipase), liver (elevated AST and ALT) and gallbladder (Elevated T.Jony and D.Jony). This manifestations could be expressed also with any pancretic or CBD associted malignancy that obstruct the biliary and pancreatic flow to Duodenum through the Ampulla of Vater. There is no malignancy symptoms like weight loss, night sweats, no Courvoisier's sign presents and no physical findings of malignancy seen in ERCP. B: Plan to keep IVF, Morphine 2mg Q6 PRN IV for abdominal pain, General Surgery Department evaluated this patient and agreed to perfom a Cholecystectomy today. Patient needs to be NPO and continue DVT prophylaxis, Enoxaparin 40mg Daily SC. Patient agrees to Surgery plan. 2. Back Pain: A: Patient states that she didnt move from bed throughout the day, only for restroom. Patient expresses having lower back pain associated with bed posture. This could be present as Muscle Spasm, but patient feels better after pain medication. B: Plan: Patient should be encourage to be out of bed and ambulate. Keep Morphine to help with back pain also.
[2017-05-11 13:54] VITALS: BP 120/70
[2017-05-11 21:59] VITALS: BP 150/90
--- NOTE | 2017-05-11 23:25 | PN- General Surgery ---
Subjective Subjective: Postoperative check Patient admits to a fair amount of right upper quadrant discomfort, particularly near the drain site. She had some mild nausea in PACU, which has since resolved. No emesis. She tolerated some ice chips. Per RN reports, patient has voided multiple times and requested a depends brief in order to avoid getting out of bed to urinate. Objective Vital Signs and I&Os Vital Signs Date Time Temp Pulse Resp B/P B/P Pulse O2 O2 Flow FiO2 Mean Ox Delivery Rate 05/11 2159 95 Nasal 2.0L Cannula 05/11 2159 97.7 84 18 150/90 95 Nasal 2.0L Cannula 05/11 1354 98.2 60 20 120/70 97 Room Air 05/11 0600 98.1 66 18 112/64 96 Room Air Intake & Output 05/12 0805/12 0000 05/11 1600 05/11 0800 05/11 0000 05/10 1600 Intake Total 494 152 4721 Output Total 850 450 400 Balance -850 300 800 900 Intake, IV 963 679 9963 Intake, Oral 50 0 Output, Urine 850 450 400 Physical Exam: Gen.: Patient is awake and alert. No acute distress. Cardiac: Regular Pulmonary: Lungs are clear bilaterally. Abdomen: Soft and mildly distended. Dressings are clean, dry, and intact. SERGIO is in place with a small amount of bloody serosanguineous fluid. I estimated about 10 mL. No bowel sounds were heard. Extremities: No significant edema or calf tenderness. Assessment/Plan Assessment/Plan Patient is a 37-year-old female with a history of gastritis and depression, who is now postoperative day #0 status post laparoscopic cholecystectomy for gallstone pancreatitis. She experienced some bleeding intraoperatively, so a drain was left in place for monitoring purposes. -Clear liquid diet for now. Okay to decrease IV fluids to 75 ML's per hour given the frequent voiding. -SERGIO drain to bulb suction. Continue to monitor output. -Follow-up CBC and LFTs in the morning. -Pain control with oxycodone or morphine as needed. -Patient may be out of bed and ambulate as desired. I encouraged her to try to do so, especially to get up to use the bathroom. -Subcutaneous heparin and Alps for DVT prophylaxis. -Continue to follow.
[2017-05-12 06:51] VITALS: BP 100/50
--- NOTE | 2017-05-12 07:31 | PN- Housestaff ---
SALIMA BORDEN,[facility] 05/12/17 0730: Subjective Follow-up For: Gallstone pancreatitis Choledocholithiasis status post ERCP 2 days Status post cholecystectomy 2 days Complaints: pain 5/10 Subjective: I have seen and examined the patient. She complains of pain in right upper quadrant. She says she is hungry. She has used bathroom independently once to urinate. She has not had a bowel movement yet. She says she is having pain when she inhales, there is no fever will get an Chest x-ray.Sometimes she feels nauseous. In the morning she had an episode of vomiting that was less than quarter of a cup it was green in color nonbloody. There is no complaint of shortness of breath chest pain and palpitations. Review of Systems Constitutional: Reports: weakness. Denies: chills, fever. Cardiovascular: Denies: chest pain, edema, palpitations. Respiratory: Denies: cough, orthopnea, short of breath. Gastrointestinal: Reports: abdominal pain, nausea. Denies: distention. Genitourinary: Reports: no symptoms. Musculoskeletal: Reports: no symptoms. Objective Last 24 Hrs of Vital Signs/I&O Vital Signs Date Time Temp Pulse Resp B/P B/P Pulse O2 O2 Flow FiO2 Mean Ox Delivery Rate 05/12 0651 98.0 68 18 100/50 94 Room Air 05/11 215 95 Nasal 2.0L Cannula 05/11 215 97.7 84 18 150/90 95 Nasal 2.0L Cannula 05/11 1354 98.2 60 20 120/70 97 Room Air Intake & Output 05/12 0800 05/12 0000 05/11 1600 Intake Total 600 750 Output Total 730 850 450 Balance -130 -850 300 Intake, IV 600 700 Intake, Oral 50 Output, 30 Drainage Output, Urine 700 850 450 Physical Exam General Appearance: Alert, Oriented X3, Cooperative, No Acute Distress Skin: No Rashes, No Breakdown Neck: Supple Cardiovascular: Normal S1, Normal S2, No Murmurs Lungs: Clear to Auscultation, Normal Air Movement Abdomen: Normal Bowel Sounds, Soft and mildly distended. Dressings are clean, dry, and intact. SERGIO is in place with a small amount of bloody serosanguineous fluid. Neurological: Normal Speech Extremities: No Cyanosis, No Edema Current Medications: Current Medications Sig/Willem Start time Last Medication Dose Route Stop Time Status Admin Acetaminophen 650 MG Q4P PRN 05/11 2115 PO Acetaminophen 1,000 MG Q6P PRN 05/09 1515 DC N/A 1 UNIT IV Dextrose/Sodium 1,000 ML Q10H 05/11 2115 05/11 Chloride IV 2210 Enoxaparin Sodium 40 MG DAILY 05/12 1000 SC Enoxaparin Sodium 40 MG DAILY 05/09 1000 NH 05/10 SC 0757 Fentanyl Citrate 250 MCG .STK-MED ONE 05/11 171 DC IM 05/11 1715 Hydromorphone HCl 2 MG .STK-MED ONE 05/11 2046 NH IM 05/11 2047 Hydromorphone HCl 2 MG .STK-MED ONE 05/11 1828 NH IM 05/11 1829 Lactated Ringer's 1,000 ML .Q10H 05/10 1515 NH 05/11 IV 1215 Midazolam HCl 2 MG .STK-MED ONE 05/11 171 NH IM 05/11 171 Morphine Sulfate 2 MG Q4P PRN 05/11 2115 05/12 IV 0232 Morphine Sulfate 2 MG Q6P PRN 05/09 1330 NH 05/10 IV 0751 Ondansetron HCl 4 MG Q6P PRN 05/11 2115 05/12 IV 0022 Oxycodone HCl 5 MG Q4P PRN 05/11 2115 PO Oxycodone HCl 10 MG Q4P PRN 05/11 2115 05/12 PO 0022 Patient Medication 1 ED .STK-MED ONE 05/11 1420 NH Teaching ED 05/11 1421 Last 24 Hrs of Lab/[place] Results Last 24 Hrs of Labs/Mics: Laboratory Tests 05/12/17 0705: Anion Gap 15, Estimated GFR > 60, BUN/Creatinine Ratio 10.0, Total Bilirubin 1.6 H, Direct Bilirubin 0.7 H, AST 230 H, ALT 462 H, Alkaline Phosphatase 156 H , Total Protein 8.2, Albumin 4.8, CBC w Diff NO MAN DIFF REQ, RBC 5.21, MCV 80.8 L, MCH 26.4 L, RDW 13.8, MPV 8.3, Gran % 87.0 H, Lymphocytes % 9.4 L, Monocytes % 3.2, Eosinophils % 0.2, Basophils % 0.2, Absolute Granulocytes 14.0 H, Absolute Lymphocytes 1.5, Absolute Monocytes 0.5, Absolute Eosinophils 0, Absolute Basophils 0, PUBS MCHC 32.7 L Assessment/Plan Assessment: Assessment The pt is a 37-year-old female who has been having symptoms of biliary colic for the past several months worsened over the past week presents now with evidence of gallstone pancreatitis likely from a passed gallstone as per GI.Her bilirubin was mildly elevated on admission.She is without evidence of cholangitis as she has been afebrile and stable since admission. Pertinent data -elevated AST 230, ALT 572, ALP 194, amylase 543, and lipase 9721 most likely pancreatitis secondary to gallstone -CT Cholelithiasis without evidence for acute cholecystitis. There is mild dilatation of the common bile duct without filling defects seen. Unremarkable appearance of the pancreas. -U/S 1. The liver has diffusely increased echogenicity consistent with hepatic steatosis. 2. There are multiple gallstones noted in the gallbladder, without evidence of acute cholecystitis. The CBD is moderately distended at 0.9 cm. -ERCP was done 05/10 3 stones were removed.Impression Choledocholithiasis, treated with sphincterotomy and balloon extraction Plan -IV hydration with lactated Ringer solution 75ml/hr as per surgery -Lfts, Total Bilirubin 1.6 H, Direct Bilirubin 0.7 H, AST 230 H, ALT 462 H, Alkaline Phosphatase 156 H, Total Protein 8.2, Albumin 4.8, will continue to monitor LFTs. total kaci improving ast and alt trending up expected after Ashia -off of antibiotics as per GI reccs -will notify GI for signs of cholangitis such as high fevers or hemodynamic instability. -Patient had laparoscopic cholecystectomy done yesterday by Dr. Antony. She experienced some bleeding intraoperatively, so a drain was left in place for monitoring purposes.We will continue to monitor the drain output. There is small amount of bloody serosanguineous fluid in the bulb -Patient is ambulating and going to the bathroom independently. She has been advised to ambulate more -She is on clear liquid diet for now as per surgery. -Patient is complaining of pain while she heals. We will get a chest x-ray. Patient has been instructed to do spirometry exercises. Pain management tylenol 1000 q6 ketorolac 30 mg morphine 2 mg q6 DVT prohylaxis Lovenox Problem List: 1. Abdominal pain 2. Gallstone pancreatitis 3. Choledocholithiasis Pain Ratin Pain Location: RUQ Pain Goal: Pain 4 or less Pain Plan: tylenol 1000 q6 ketorolac 30 mg morphine 2 mg q Tomorrow's Labs & Rationales: lfts KAYCE BORDEN,AWILDA 05/12/17 1050: Attending MD Review Statement Attending Statement Attending MD Statement: examined this patient, discuss w/resident/PA/MOLDER MEAT, agreed w/resident/PA/MOLDER MEAT, discussed with family, reviewed EMR data (avail), discussed with nursing, discussed with case mgmt, reviewed images Attending Assessment/Plan: Patient seen and examined, feels ok, she just had the SERGIO drain discontinued. She is now complaining of some pain at that site. She also mentions that she's having some difficulty inhaling. Her chest x-ray this morning shows that she has atelectasis. Vital Signs Date Time Temp Pulse Resp B/P B/P Pulse O2 O2 Flow FiO2 Mean Ox Delivery Rate 05/12 0651 98.0 68 18 100/50 94 Room Air 05/11 2159 95 Nasal 2.0L Cannula 05/11 2159 97.7 84 18 150/90 95 Nasal 2.0L Cannula 05/11 1354 98.2 60 20 120/70 97 Room Air on exam; aox3, nad. cv; s1,s2, rrr resp; decreased bs at b/l bases abd; soft, + bandages at the laproscopic sites, bs+, + mild tenderness ext; no edema. Laboratory Tests 05/12 0705 Chemistry Sodium (137 - 145 mmol/L) 137 Potassium (3.5 - 5.1 mmol/L) 4.4 Chloride (98 - 107 mmol/L) 96 L Carbon Dioxide (22 - 30 mmol/L) 25 Anion Gap (5 - 16) 15 BUN (7 - 17 mg/dL) 5 L Creatinine (0.5 - 1.0 mg/dL) 0.5 Estimated GFR (>60 ml/min) > 60 BUN/Creatinine Ratio (7 - 25 %) 10.0 Total Bilirubin (0.2 - 1.3 mg/dL) 1.6 H Direct Bilirubin (< 0.4 mg/dL) 0.7 H AST (14 - 36 U/L) 230 H ALT (9 - 52 U/L) 462 H Alkaline Phosphatase (<127 U/L) 156 H Total Protein (6.3 - 8.2 g/dL) 8.2 Albumin (3.5 - 5.0 g/dL) 4.8 Hematology CBC w Diff NO MAN DIFF REQ WBC (4.8 - 10.8 /CUMM) 16.0 H RBC (4.20 - 5.40 /CUMM) 5.21 Hgb (12.0 - 16.0 G/DL) 13.8 Hct (37 - 47 %) 42.1 MCV (81.0 - 99.0 FL) 80.8 L MCH (27.0 - 31.0 PG) 26.4 L RDW (11.5 - 14.5 %) 13.8 Plt Count (130 - 400 /CUMM) 391 MPV (7.4 - 10.4 FL) 8.3 Gran % (42.2 - 75.2 %) 87.0 H Lymphocytes % (20.5 - 51.1 %) 9.4 L Monocytes % (1.7 - 9.3 %) 3.2 Eosinophils % (0 - 5 %) 0.2 Basophils % (0.0 - 2.0 %) 0.2 Absolute Granulocytes (1.4 - 6.5 /CUMM) 14.0 H Absolute Lymphocytes (1.2 - 3.4 /CUMM) 1.5 Absolute Monocytes (0.10 - 0.60 /CUMM) 0.5 Absolute Eosinophils (0.0 - 0.7 /CUMM) 0 Absolute Basophils (0.0 - 0.2 /CUMM) 0 PUBS MCHC (33.0 - 37.0 G/DL) 32.7 L A/P; 37 y/o F with pmh sig gastritis, depression admitted with abd pain, acute pancreatitis, gall stones. Status post ERCP estimated extraction of 3 stones. S /P lap Cholecystectomy POD #1 today. Patient was complaining of difficulty inhaling therefore your pain a chest x-ray which is consistent with atelectasis. Patient encouraged to ambulate and get out of bed to chair. Continue current pain regimen. Patient has been started on clears today. Will advance slowly as she tolerates either later today or tomorrow morning. DVT px: Lovenox.
--- NOTE | 2017-05-12 07:31 | Discharge Summary ---
Visit Information Visit Dates Admission Date: 05/09/17 Discharge Date: 05/13/17 Hospital Course Course Attending Physician: TOSHA HARVEY MD Primary Care Physician: Louise Consulting Request: 1 Consulting Specialty: Gastroenterology Consulting Request: 2 Consulting Specialty: General Surgery Hospital Course: The pt is a 37-year-old female who has been having symptoms of biliary colic for the past several months worsened over the past week. She presented to ER with a very sharp epigastric and RUQ pain that was nonradiating associated with nausea and a few episodes of vomiting. As per GI she now had evidence of gallstone pancreatitis likely from a passed gallstone .Her bilirubin was mildly elevated on admission.She was without evidence of cholangitis as she hadbeen afebrile and stable since admission. ED workup showed -elevated AST 230, ALT 572, ALP 194, amylase 543, and lipase 9721 most likely pancreatitis secondary to gallstone -CT Cholelithiasis without evidence for acute cholecystitis. There is mild dilatation of the common bile duct without filling defects seen. Unremarkable appearance of the pancreas. -U/S 1. The liver has diffusely increased echogenicity consistent with hepatic steatosis. 2. There are multiple gallstones noted in the gallbladder, without evidence of acute cholecystitis. The CBD is moderately distended at 0.9 cm. The patient was admitted to [facility] floor. IV hydration was carried out with lactated Ringer's solution. We continued to monitor and trend her LFTs. Pain control was achieved by tylenol 1000 q6,ketorolac 30 mg ,morphine 2 mg q6. GI was consulted and she was taken for ERCP on 05/10. 3 stones were removed and Impression Choledocholithiasis, treated with sphincterotomy and balloon extraction. We kept her off antibiotics as per GI recommendations. General surgery was also consulted. Patient had a laparoscopic cholecystectomy for gallstone pancreatitis on 05/11. She experienced some intraoperative bleeding so lottie drain was placed. The drain was removed by the PA on 05/12. Post operatively she complained of pain while inhaling. A chest x-ray was obtained which showed evidence of atelectasis. Patient was encouraged to use incentive spirometry and ambulate. The patient is using the bathroom independently and passing gas. After the surgery she was on clear liquid diet and has been advanced to regular diet. She is ambulating well. We have discontinued her IV fluids. She is afebrile and hemodynamically stable. She will be discharged home on adequate pain control. She'll need to follow-up with her PCP and GI will continued care. Allergies: Coded Allergies: No Known Allergies (05/02/17) Disposition Summary Disposition Principal Diagnosis: Choledocholithiasis Gallstone pancreatitis Additional Diagnosis: none Discharge Disposition: home or self care Discharge Instructions General Discharge Information Code Status: Full Code Patient's Diet: Regular Patient's Activity: As tolerated Follow-Up Instructions/Appts: Please follow-up with your PCP. Please return to ED if u spikes a fever, have increased pain at surgical site, purulent discharge from surgical site, shortness of breath. Please continue to ambulate. Please keep doing your intensive spirometry exercises Medications at Discharge Discharge Medications: Continue taking these medications: Sertraline HCl (Sertraline HCl) 100 MG TABLET 1 Tablet ORAL DAILY Qty = 30 Comments: NOT GIVEN AT HOSPITAL Ergocalciferol (Vitamin D2) (Vitamin D2) 50,000 UNIT CAPSULE 1 Tablet ORAL ONCE A WEEK Qty = 4 Comments: NOT GIVEN AT HOSPITAL Loratadine/Pseudoephedrine (Claritin-D 24 Hour Tablet) 10 MG-240 MG TAB.ER.24H 1 Tablet ORAL DAILY as needed for ALLERGIES Comments: NOT GIVEN AT HOSPITAL Omeprazole (Omeprazole) 20 MG TABLET.DR 1 Tablet ORAL DAILY Qty = 30 Comments: NOT GIVEN AT HOSPITAL Start taking the following new medications: Oxycodone HCl (Oxycodone HCl) 5 MG TABLET 1 Tablet ORAL EVERY 4 HOURS NEEDED as needed for PAIN SCALE 4-6 (MODERATE ) Qty = 10 No Refills Instructions: As directed Comments: Last Taken: 05/13/17 Time: 1000 Docusate Sodium (Colace) 100 MG CAPSULE 1 Capsule ORAL TWICE DAILY as needed for Constipation Qty = 60 No Refills Instructions: Hold for more than 1 bowel regimen per 24hrs. Copies To: LOUISE BORDEN,DAVIE Attending Review Statement Other Findings: I agree with above. Patient was admitted with choledocholithiasis and gallstone pancreatitis And underwent ERCP with stone extraction as well as laparoscopic cholecystectomy later on. Overall improved. On the day of discharge she was passing gas and had a small BM. Also she was tolerating diet well. Patient did not require any antibiotics. Patient to follow-up with surgery, GI as well as her primary care doctor as an outpatient.
[2017-05-12 08:19] LABS: ABSOLUTE BASOPHIL COUNT 0 /CUMM (0.0-0.2); ABSOLUTE EOSINOPHIL COUNT 0 /CUMM (0.0-0.7); MEAN PLATELET VOLUME 8.3 FL (7.4-10.4)
--- NOTE | 2017-05-12 08:39 | PN- General Surgery ---
GAIL BLEDSOE 05/12/17 0828: Subjective Subjective: Patient reports incisional pain this morning which is well controlled with analgesics. She states she had one small episode of emesis at 4:00 am, which she described as bilious. Currently she denies any nausea, vomiting, fever, chills or night sweats. She is tolerating ice chips and has not had liquids yet. She denies passing flatus or moving her bowels. She has only ambulated to use the bathroom and reports difficulty taking a deep breath. She offers to other complaints. Objective Vital Signs and I&Os Vital Signs Date Time Temp Pulse Resp B/P B/P Pulse O2 O2 Flow FiO2 Mean Ox Delivery Rate 05/12 0651 98.0 68 18 100/50 94 Room Air 05/11 2159 95 Nasal 2.0L Cannula 05/11 2159 97.7 84 18 150/90 95 Nasal 2.0L Cannula 05/11 1354 98.2 60 20 120/70 97 Room Air Intake & Output 05/12 1600 05/12 0800 05/12 0000 05/11 1600 05/11 0800 05/11 0000 Intake Total 600 133 827 5996 Output Total 730 850 450 400 Balance -130 -850 300 800 900 Intake, IV 600 324 043 3069 Intake, Oral 50 0 Output, 30 Drainage Output, Urine 700 850 450 400 Physical Exam: General: Patient resting comfortable in bed awake and alert in no acute distress. Cardiac: s1s2 appreciated. RRR. Lungs: Fair inspiratory effort. No w/r/r. Abdomen: Soft and obese with 3 laparoscopic incisions with bandages in place which are c/d/i. SERGIO drain in place draining serosang drainage. Drain was stripped at bedside to patency. Ext: No edema or calf tenderness b/l Current Medications: Current Medications Sig/Willem Start time Last Medication Dose Route Stop Time Status Admin Acetaminophen 650 MG Q4P PRN 05/11 2115 AC PO Acetaminophen 1,000 MG Q6P PRN 05/09 1515 DC N/A 1 UNIT IV Bupivacaine HCl/ 10 ML .STK-MED ONE 05/11 831 DC Epinephrine Bitart SC 05/11 08 Cefazolin Sodium 1,000 MG .STK-MED ONE 05/11 0831 DC IV 05/11 0832 Dextrose/Sodium 1,000 ML Q10H 05/11 2115 AC 05/11 Chloride IV 2210 Enoxaparin Sodium 40 MG DAILY 05/12 1000 SC Enoxaparin Sodium 40 MG DAILY 05/09 1000 DC 05/10 SC 0757 Fentanyl Citrate 250 MCG .STK-MED ONE 05/11 1714 UT IM 05/11 1715 Hydromorphone HCl 2 MG .STK-MED ONE 05/11 2046 DC IM 05/11 2047 Hydromorphone HCl 2 MG .STK-MED ONE 05/11 1828 UT IM 05/11 1829 Lactated Ringer's 1,000 ML .Q10H 05/10 1515 UT 05/11 IV 1215 Midazolam HCl 2 MG .STK-MED ONE 05/11 1714 UT IM 05/11 1715 Morphine Sulfate 2 MG Q4P PRN 05/11 211 05/12 IV 0232 Morphine Sulfate 2 MG Q6P PRN 05/09 1330 UT 05/10 IV 0751 Ondansetron HCl 4 MG Q6P PRN 05/11 211 05/12 IV 0022 Oxycodone HCl 5 MG Q4P PRN 05/11 2115 PO Oxycodone HCl 10 MG Q4P PRN 05/11 211 05/12 PO 0022 Patient Medication 1 ED .STK-MED ONE 05/11 1420 UT Teaching ED 05/11 1421 Results Last 48 Hours of Labs: Laboratory Tests 05/12 05/11 0705 0715 Chemistry Sodium (137 - 145 mmol/L) Pending 138 Potassium (3.5 - 5.1 mmol/L) Pending 4.3 Chloride (98 - 107 mmol/L) Pending 102 Carbon Dioxide (22 - 30 mmol/L) Pending 22 Anion Gap (5 - 16) Pending 15 BUN (7 - 17 mg/dL) Pending 7 Creatinine (0.5 - 1.0 mg/dL) Pending 0.5 Estimated GFR (>60 ml/min) > 60 BUN/Creatinine Ratio (7 - 25 %) Pending 14.0 Total Bilirubin (0.2 - 1.3 mg/dL) Pending 2.4 H Direct Bilirubin (< 0.4 mg/dL) Pending 0.9 H AST (14 - 36 U/L) Pending 138 H ALT (9 - 52 U/L) Pending 374 H Alkaline Phosphatase (<127 U/L) Pending 159 H Total Protein (6.3 - 8.2 g/dL) Pending 7.4 Albumin (3.5 - 5.0 g/dL) Pending 4.3 Hematology CBC w Diff Pending NO MAN DIFF REQ WBC (4.8 - 10.8 /CUMM) Pending 9.2 RBC (4.20 - 5.40 /CUMM) Pending 5.01 Hgb (12.0 - 16.0 G/DL) Pending 13.3 Hct (37 - 47 %) Pending 40.2 MCV (81.0 - 99.0 FL) Pending 80.2 L MCH (27.0 - 31.0 PG) Pending 26.5 L RDW (11.5 - 14.5 %) Pending 14.1 Plt Count (130 - 400 /CUMM) Pending 386 MPV (7.4 - 10.4 FL) Pending 8.2 Gran % (42.2 - 75.2 %) 55.2 Lymphocytes % (20.5 - 51.1 %) 37.4 Monocytes % (1.7 - 9.3 %) 5.4 Eosinophils % (0 - 5 %) 1.6 Basophils % (0.0 - 2.0 %) 0.4 Absolute Granulocytes (1.4 - 6.5 /CUMM) 5.1 Absolute Lymphocytes (1.2 - 3.4 /CUMM) 3.4 Absolute Monocytes (0.10 - 0.60 /CUMM) 0.5 Absolute Eosinophils (0.0 - 0.7 /CUMM) 0.1 Absolute Basophils (0.0 - 0.2 /CUMM) 0 PUBS MCHC (33.0 - 37.0 G/DL) Pending 33.0 Assessment/Plan Assessment/Plan This is a 37 y/o female with a history of depression admitted with gallstone pancreatitis. She is POD 1 s/p laparoscopic cholecystectomy with SERGIO drain placement x1 for intraoperative bleeding. From a surgicial standpoint, patient is recovering well. Continue clear liquid diet and advance as tolerated once signs of bowel function returns. Continue current pain regimen and SERGIO drain to bulb suction. Follow up labs. Encourage ambulate and incentive spirometry use. Patient will be discussed with Dr. Schroeder. Problem List: 1. Gallstone pancreatitis Core Measures/Miscellaneous Venous Thromboembolism VTE Diagnosis: No VTE Type: NONE VTE Confirmed by (Test): NONE ALIN BORDEN,[facility] 05/13/17 1256: Core Measures/Miscellaneous Venous Thromboembolism VTE Risk Factors: Acute medical illness VTE Contraindications: No Contraindications Beta Noah Is Beta Noah a Home Med? No Antibiotics Is Patient on Antibiotics? Yes Attending MD Review Statement Attending Statement Attending Assessment/Plan: Patient seen and examined hemoglobin 13.8 SERGIO minimal serosanguineous overall no signs of bleeding were removed SERGIO but the white count and LFTs increased a little bit and she's got a little bit of abdominal pain so we will observe, advance diet.
[2017-05-12 09:03] LABS: ABSOLUTE LYMPH COUNT 1.5 /CUMM (1.2-3.4); ABSOLUTE MONOCYTE COUNT 0.5 /CUMM (0.10-0.60); BASOPHIL % 0.2 % (0.0-2.0); EOSINOPHIL % 0.2 % (0-5); HEMATOCRIT 42.1 % (37-47); MEAN CORPUSCULAR HGB 26.4 PG (27.0-31.0); MEAN CORPUSCULAR HGB CONC 32.7 G/DL (33.0-37.0); MEAN CORPUSCULAR VOLUME 80.8 FL (81.0-99.0); PLATELET COUNT 391 /CUMM (130-400); RBC DISTRIBUTION WIDTH 13.8 % (11.5-14.5); RED BLOOD CELL CT 5.21 /CUMM (4.20-5.40)
--- NOTE | 2017-05-12 09:04 | PN- Student ---
Subjective Subjective: S: Patient is a 37 y-o female with a history of gastritis, depression and gallstones, is on her hospitalization day #4 due to gallstone pancreatitis, POD #1: Laparoscopic Cholecystectomy with a drain inserted due to intraoperative bleeding. Patient states feeling well, tired, weak, pain in RUQ related with incisions, vomits x1 this morning at 04:00, difficult to deep breath and dizziness. Patient denies fever, BM, passing gasses, SOB, chest pain, headaches, palpitations, urinary retention or incontinance. Current Medications Sig/Willem Start time Last Medication Dose Route Stop Time Status Admin Acetaminophen 650 MG Q4P PRN 05/11 2115 PO Acetaminophen 1,000 MG Q6P PRN 05/09 1515 DC N/A 1 UNIT IV Dextrose/Sodium 1,000 ML Q10H 05/11 2115 05/11 Chloride IV 2210 Enoxaparin Sodium 40 MG DAILY 05/12 1000 SC Enoxaparin Sodium 40 MG DAILY 05/09 1000 LA 05/10 SC 0757 Fentanyl Citrate 250 MCG .STK-MED ONE 05/11 1714 LA IM 05/11 1715 Hydromorphone HCl 2 MG .STK-MED ONE 05/11 2046 LA IM 05/11 2047 Hydromorphone HCl 2 MG .STK-MED ONE 05/11 1828 LA IM 05/11 1829 Lactated Ringer's 1,000 ML .Q10H 05/10 1515 LA 05/11 IV 1215 Midazolam HCl 2 MG .STK-MED ONE 05/11 1714 LA IM 05/11 1715 Morphine Sulfate 2 MG Q4P PRN 05/11 2115 05/12 IV 0232 Morphine Sulfate 2 MG Q6P PRN 05/09 1330 LA 05/10 IV 0751 Ondansetron HCl 4 MG Q6P PRN 05/11 2115 05/12 IV 0022 Oxycodone HCl 5 MG Q4P PRN 05/11 2115 PO Oxycodone HCl 10 MG Q4P PRN 05/11 2115 05/12 PO 0022 Patient Medication 1 ED .STK-MED ONE 05/11 1420 LA Teaching ED 05/11 1421 Review of Systems Constitutional: Denies: chills, fever, malaise, wheight loss. Cardiovascular: Denies: chest pain, palpitations. Respiratory: Denies: hemoptysis, SOB, orthopnea Gastrointestinal: Denies: diarrhea or constripation. Reports: Abdominal pain related with Laparoscopic incisions, more localized in RUQ. Genitourinary: Denies: hematuria, dysuria, color changes, retention or incontinance Musculoskeletal: Reports: lower back pain. Skin: Reports: less pruritus on hands Denies: abrasion, bruises Objective Objective: Last 24 hours Vital Signs and I&O: Vital Signs Date Time Temp Pulse Resp B/P B/P Pulse O2 O2 Flow FiO2 Mean Ox Delivery Rate 05/12 0651 98.0 68 18 100/50 94 Room Air 05/11 2159 95 Nasal 2.0L Cannula 05/11 215 97.7 84 18 150/90 95 Nasal 2.0L Cannula 05/11 1354 98.2 60 20 120/70 97 Room Air Intake & Output 05/12 1600 05/12 0800 05/12 0000 Intake Total 600 Output Total 730 850 Balance -130 -850 Intake, IV 600 Output, 30 Drainage Output, Urine 700 850 Physical Exam General Appearance: Alert, Oriented X3, Cooperative, NAD, Calm. Skin: No Rashes, No Breakdown, No dryness, No skin discoloration or jaundice HEENT: Atraumatic, no tender under palpation of scalp and neck. EOMI, PERRL, No jaudice noted on eyes. Cardiovascular: Normal JVD, Normal chest shape, Pulse: RRR, Normal S1 and S2 heard, No Murmurs or additional sounds. Lungs: Normal Chest shape, Thrachea centrally located, Resonant on percussion, Clear to Auscultation Bilaterally, Normal Air Movement Abdomen: Normal shape, bruises with bandage after Laparoscopic Cholecystectotmy and SERGIO dreinage insertion, SERGIO bulb with serosanguinous fluid. Decreased BS, Tympanic to percussion. Tender to light palpation in RUQ area. Extremities: No edema, abrasion, color change or ulcers in any extremity. Pulses palpable X4. Neurological: Congruent speech, CN intact II-XII, Sensroy intact in extremities x4, motor strength intact, Normal posture. Results Results: Laboratory Tests 05/12/17 0705: Anion Gap 15, Estimated GFR > 60, BUN/Creatinine Ratio 10.0, Total Bilirubin 1.6 H, Direct Bilirubin 0.7 H, AST 230 H, ALT 462 H, Alkaline Phosphatase 156 H , Total Protein 8.2, Albumin 4.8, CBC w Diff NO MAN DIFF REQ, RBC 5.21, MCV 80.8 L, MCH 26.4 L, RDW 13.8, MPV 8.3, Gran % 87.0 H, Lymphocytes % 9.4 L, Monocytes % 3.2, Eosinophils % 0.2, Basophils % 0.2, Absolute Granulocytes 14.0 H, Absolute Lymphocytes 1.5, Absolute Monocytes 0.5, Absolute Eosinophils 0, Absolute Basophils 0, PUBS MCHC 32.7 L Diagnositc Data: CXR-PORTABLE CHEST XRAY: 05/12/17 10:14 IMPRESSION: Hypoinflated lungs with bibasilar atelectasis. A superimposed pneumonia would have to be excluded on the basis of clinical criteria. DICTATED BY: RICHARD LUO MD DATE/TIME DICTATED:05/12/171008 FREELANCE WEB DESIGNER:BRENNAN DATE/TIME TRANSCRIBED:05/12/171008 <Electronically signed in Other Vendor System> SIGNED BY: RICHARD LUO MD 05/12/17 1014 Assessment/Plan Assessment: Assessment: Assessment: Patient is a 37 y-o female who has a history of gastritis and drepssion is on her hospitalization day #4 due to gallstones pancreatitis and POD #1: Laparoscopic Cholecystitis with drainage insertion due to intraoperative bleeding. Patient is also s/p ERCP and sphincterectomy with 3 stones removed from CBD, she presents this morning with difficulties in deep inspiration, generalize weakness, and post operative abdominal pain. Patient has an Oxygen Saturation of 94%, a CXR showing bibasilar atelectasis and decrease air entry in physical examination. Patient is trending down her Total and Direct bilirubin, 2.4 to 1.6 and 0.9 to 0.7 respectively. Patient presents this morning with leukocytosis, WBC: 16.0 with no signs of infection. Problem List: 1. Gallstone Pancreatitis 2. Bibasilar Atelectasis 2. Back Pain 1. Gallstone Pancreatitis A. Patient is POD #1: Laparoscopic Cholecystitis and s/p ERCP after 3 stones reomoved from CBD. Total Bilirubin 1.6, Direct Bilirubin 0.7, AST 230, ALT 462, Alkaline Phosphatase 156. It was noticed an improvemnt in total bilirubin and direct bilirubin levels but increased in AST and ALT. This elevation of liver enzyme could be related after operation. The direct obstruction of CBD make stagnation of Biliary fluids and pancreatic juices, resulting in damage and inflammation of pancreas (elevated lipase), liver (elevated AST and ALT) and gallbladder (Elevated T.Jony and D.Jony). This manifestations could be expressed also with any pancretic or CBD associted malignancy that obstruct the biliary and pancreatic flow to Duodenum through the Ampulla of Vater. There is no malignancy symptoms like weight loss, night sweats, no Courvoisier's sign presents and no physical findings of malignancy seen in ERCP or Laparoscopy. B: Plan to keep IVF, Morphine 2mg Q4 PRN IV Acetaminophen 650mg Q4P PRN PO and Oxycodone 10mg and 5mg Q4P PRN PO for abdominal pain. General Surgery Department evaluated this patient and agreed to start clear liquid diet. Continue DVT prophylaxis, Enoxaparin 40mg Daily SC. Patient agrees to Surgery plan. 2. Bibasilar Atelectasis A. Patient is on POD #1, she develops trouble with deep inspiration due to abdominal pain. Patient is just walking to go to bathroom and she stays most of the day on bed laying flat. Most likely, patient is developing an atelectasis after surgery due to poor lung expansion caused by pain and no spirometer exercise. A confirmation of the diganosis was done with the CXR that shows bibasilar atelectasis and hypoinflated lungs. A differential diagnosis of Pulmonary Embolism should be aware due to poor ambulation and post surgery status. B: Patient should be start on Oxygen Nasal Canula 2L, Incentive Spirometer, OOB and Ambulation. Watch vitals Q4 hours. Keep Enoxaparin 40mg Daily SC for DVT prophylaxis. 3. Back Pain: A: Patient states that she didnt move from bed throughout the day, only for restroom. Patient expresses having lower back pain associated with bed posture. This could be present as Muscle Spasm, but patient feels better after pain medication. B: Plan: Patient should be encourage to be out of bed and ambulate. Keep Morphine, Acetaminophen and Oxycodone to help with back pain also.
--- NOTE | 2017-05-12 10:14 | RADIOLOGY REPORT ---
EXAMINATION: XR PORTABLE CHEST CLINICAL INFORMATION: Shortness of breath. COMPARISON: None TECHNIQUE: Portable frontal view of the chest was obtained. FINDINGS: Lungs are hypoinflated. There are linear opacities of subsegmental atelectasis in the left lung base. Also, there is linear and hazy opacity in the medial right lung base which could represent atelectasis or infiltrate. No pulmonary edema or pleural effusion. Cardiac silhouette has normal size and contour. Bones are unremarkable. IMPRESSION: Hypoinflated lungs with bibasilar atelectasis. A superimposed pneumonia would have to be excluded on the basis of clinical criteria.
[2017-05-12] MEDS ORDERED: OXYCODONE HCL5 M1 PO (11:00)
--- NOTE | 2017-05-12 11:08 | Patient Discharge Instructions ---
Discharge Instructions General Discharge Information You were seen/treated for: gallstone pancreatitis You had these procedures: ERCP Gallbladder removal Watch for these problems: unable to pass stool or pass gas worsening abdominal pain fever low BP Jaundice Special Instructions: 1. Follow up with your PCP in one week 2. Follow up with your Dr Clifford in two weeks 3. Follow up with your surgeon in one week 4. advance your diet as tolerated Diet Recommended Diet: Low Fat Activity Activity Self Limited: Yes Acute Coronary Syndrome Inclusion Criteria At DC or during hospital stay patient has or had the following: ACS DIAGNOSIS No Discharge Core Measures Meds if any: Prescribed or Continued at Discharge Meds if any: NOT Prescribed or Continued at Discharge Congestive Heart Failure Inclusion Criteria At DC or during hospital stay patient has or had the following: CHF DIAGNOSIS No Discharge Core Measures Meds if any: Prescribed or Continued at Discharge Meds if any: NOT Prescribed or Continued at Discharge Cerebrovascular accident Inclusion Criteria At DC or during hospital stay patient has or had the following: CVA/TIA Diagnosis No Discharge Core Measures Meds if any: Prescribed or Continued at Discharge Meds if any: NOT Prescribed or Continued at Discharge Venous thromboembolism Inclusion Criteria VTE Diagnosis No VTE Type NONE VTE Confirmed by (Test) NONE Discharge Core Measures - Per Current guidelines, there needs to be overlap - treatment for the first 5 days of Warfarin therapy. - If discharged on Warfarin prior to 5 days of - overlap therapy, the patient will need to be - assessed for post discharge needs including - *Post discharge parental anticoagulation - *Warfarin and/or parental anticoagulation education - *Follow up date to check INR post discharge At least 5 days overlap therapy as Inpatient No Meds if any: Prescribed or Continued at Discharge Note: Overlap Therapy is Warfarin and Anticoagulant Meds if any: NOT Prescribed or Continued at Discharge
[2017-05-12 15:13] VITALS: BP 120/70
[2017-05-12 22:42] VITALS: BP 104/58
--- NOTE | 2017-05-13 00:36 | PN- Housestaff ---
See Addendum Subjective Follow-up For: Choledocholithiasis Gallstone pancreatitis Complaints: no complaints Subjective: Have seen and examined the patient. The patient was sleeping comfortably in her bed. She has been ambulating well. She has been using the bathroom independently. Her pain on an inhalation she is much better. She will continue to use incentive spirometry exercises. She has not had a bowel movement yet. But she has been passing gas. Today we are going to advance her diet to regular. She is a potential discharge for today. Review of Systems Constitutional: Denies: see HPI. Objective Last 24 Hrs of Vital Signs/I&O Vital Signs Date Time Temp Pulse Resp B/P B/P Pulse O2 O2 Flow FiO2 Mean Ox Delivery Rate 05/12 2242 98.3 65 20 104/58 99 Room Air 05/12 1513 98.2 64 18 120/70 97 05/12 0651 98.0 68 18 100/50 94 Room Air Intake & Output 05/13 0800 05/13 0000 05/12 1600 Intake Total 220 500 Output Total Balance 220 500 Intake, IV 20 Intake, Oral 200 500 Physical Exam General Appearance: Alert, Oriented X3, Cooperative Skin: No Rashes, No Breakdown Neck: Supple Cardiovascular: Normal S1, Normal S2, No Murmurs Lungs: Clear to Auscultation, Normal Air Movement Abdomen: Normal Bowel Sounds, Soft, dressing clean and intact Neurological: Normal Speech Current Medications: Current Medications Sig/Willem Start time Last Medication Dose Route Stop Time Status Admin Acetaminophen 650 MG Q4P PRN 05/11 2115 AC PO Dextrose/Sodium 1,000 ML Q10H 05/11 2115 DC 05/11 Chloride IV 2210 Enoxaparin Sodium 40 MG DAILY 05/12 1000 AC 05/12 SC 1049 Morphine Sulfate 2 MG Q4P PRN 05/11 2115 AC 05/12 IV 2149 Ondansetron HCl 4 MG Q6P PRN 05/11 IV 0022 Oxycodone HCl 5 MG Q4P PRN 05/11 2115 AC 05/12 PO 1047 Oxycodone HCl 10 MG Q4P PRN 05/11 2115 AC 05/13 PO 0247 Last 24 Hrs of Lab/[place] Results Last 24 Hrs of Labs/Mics: Laboratory Tests 05/12/17 0705: Anion Gap 15, Estimated GFR > 60, BUN/Creatinine Ratio 10.0, Total Bilirubin 1.6 H, Direct Bilirubin 0.7 H, AST 230 H, ALT 462 H, Alkaline Phosphatase 156 H , Total Protein 8.2, Albumin 4.8, CBC w Diff NO MAN DIFF REQ, RBC 5.21, MCV 80.8 L, MCH 26.4 L, RDW 13.8, MPV 8.3, Gran % 87.0 H, Lymphocytes % 9.4 L, Monocytes % 3.2, Eosinophils % 0.2, Basophils % 0.2, Absolute Granulocytes 14.0 H, Absolute Lymphocytes 1.5, Absolute Monocytes 0.5, Absolute Eosinophils 0, Absolute Basophils 0, PUBS MCHC 32.7 L Assessment/Plan Assessment: The pt is a 37-year-old female who has been having symptoms of biliary colic for the past several months worsened over the past week. She presented to ER with a very sharp epigastric and RUQ pain that was nonradiating associated with nausea and a few episodes of vomiting. As per GI she now had evidence of gallstone pancreatitis likely from a passed gallstone .Her bilirubin was mildly elevated on admission.She was without evidence of cholangitis as she hadbeen afebrile and stable since admission. ED workup showed -elevated AST 230, ALT 572, ALP 194, amylase 543, and lipase 9721 most likely pancreatitis secondary to gallstone -CT Cholelithiasis without evidence for acute cholecystitis. There is mild dilatation of the common bile duct without filling defects seen. Unremarkable appearance of the pancreas. -U/S 1. The liver has diffusely increased echogenicity consistent with hepatic steatosis. 2. There are multiple gallstones noted in the gallbladder, without evidence of acute cholecystitis. The CBD is moderately distended at 0.9 cm. The patient was admitted to gen med floor. IV hydration was carried out with lactated Ringer's solution. We continued to monitor and trend her LFTs. Pain control was achieved by tylenol 1000 q6,ketorolac 30 mg ,morphine 2 mg q6. GI was consulted and she was taken for ERCP on 05/10. 3 stones were removed and Impression Choledocholithiasis, treated with sphincterotomy and balloon extraction. We kept her off antibiotics as per GI recommendations. General surgery was also consulted. Patient had a laparoscopic cholecystectomy for gallstone pancreatitis on 05/11. She experienced some intraoperative bleeding so lottie drain was placed. The drain was removed by the PA on 05/12. Post operatively she complained of pain while inhaling. A chest x-ray was obtained which showed evidence of atelectasis. Patient was encouraged to use incentive spirometry and ambulate. The patient is using the bathroom independently and passing gas. After the surgery she was on clear liquid diet and will be advanced to regular diet. She is ambulating well. We have discontinued her IV fluids. She is afebrile and hemodynamically stable. She will be discharged home on adequate pain control. She'll need to follow-up with her PCP and GI will continued care. Problem List: 1. Cholelithiases 2. Gallstone pancreatitis Pain Ratin Pain Location: Epigastrium RUQ Pain Goal: Pain 4 or less Pain Plan: tylenol 1000 q6 ketorolac 30 mg morphine 2 mg q6 Tomorrow's Labs & Rationales: lfts Consulting Request: Consulting Specialty: General Surgery
[2017-05-13 06:00] VITALS: BP 100/58
[2017-05-13 08:32] LABS: ABSOLUTE BASOPHIL COUNT 0 /CUMM (0.0-0.2); ABSOLUTE EOSINOPHIL COUNT 0.1 /CUMM (0.0-0.7); ABSOLUTE GRANULOCYTE CT 9.5 /CUMM (1.4-6.5); ABSOLUTE LYMPH COUNT 3.6 /CUMM (1.2-3.4); ABSOLUTE MONOCYTE COUNT 1.1 /CUMM (0.10-0.60); BASOPHIL % 0.3 % (0.0-2.0); EOSINOPHIL % 0.7 % (0-5); GRANULOCYTE % 66.6 % (42.2-75.2); HEMATOCRIT 37.6 % (37-47); MEAN CORPUSCULAR HGB 26.7 PG (27.0-31.0); MEAN CORPUSCULAR HGB CONC 33.1 G/DL (33.0-37.0); MEAN CORPUSCULAR VOLUME 80.7 FL (81.0-99.0); MEAN PLATELET VOLUME 8.1 FL (7.4-10.4); RBC DISTRIBUTION WIDTH 13.6 % (11.5-14.5); RED BLOOD CELL CT 4.65 /CUMM (4.20-5.40); WHITE BLOOD CELL COUNT 14.3 /CUMM (4.8-10.8)
[2017-05-13 10:25] LABS: PLATELET COUNT 349 /CUMM (130-400)
[2017-05-13] MEDS ORDERED: COLACE100 M1 PO ×2 (10:44→11:44)
[2017-05-13] MEDS ORDERED: OXYCODONE HCL5 M1 PO (11:44)
--- NOTE | 2017-05-13 12:54 | Operative Report ---
Operative/Inv Procedure Report Surgery Date: 05/11/17 Name of Procedure: Laparoscopic cholecystectomy Pre-Operative Diagnosis: Gallstone pancreatitis Post-Operative Diagnosis: Same Estimated Blood Loss: less than 50ml Surgeon/Top And Trim Worker: MD Antonino Tanenr Anesthesia: general endotracheal tube Operative/Procedure Note Note: Patient was positioned supine. After successful induction of general anesthesia, the patient's abdomen was clipped, prepped and draped in the usual sterile fashion. Local anesthetic was injected at the top of the umbilicus and then a curved horizontal incision little over a centimeter was made there with a 15 blade and then deepened to the midline fascia which was incised vertically a little over a centimeter. Both sides were secured with 0 Vicryl stay sutures and then the thin peritoneal layer was entered, 10 mm Perkins trocar inserted obliquely to the right, and the gas was turned on to 15 mm. After insufflation and repositioning to reverse Trendelenburg, 3 more dissecting 5 mm trochars were placed in the right subcostal area, first lateral, then mid-subcostal, then subxiphoid. 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 We dissected out the area of the triangle of Calot while retracting the infundibulum caudally / laterally. First the cystic duct was identified, isolated at the neck, clipped 3 times, divided after the second clip and then in similar fashion the cystic artery was identified medially, dissected and divided. This part was straightforward. However when the gallbladder was from the liver bed, it was very fibrotic and we did encounter some venous oozing in the middle which stopped with a bit of Surgicel but even so, I left a SERGIO drain through one of the trocar sites. After the gallbladder was completely freed it was lowered into an Endobag and removed through the umbilical incision, after having to enlarge it because of the calcification. The instruments and then the trochars were removed letting the gas escape. The fascial incision was closed with a figure 8 Vicryl and an additional interrupted, then all 4 skin incisions were closed with interrupted subcuticular 4-0 Monocryl, followed by Mastisol Steri-Strips and Bandaids. Estimated blood loss was minimal, lap and sponge counts were correct, wound expectancy was clean-contaminated, IV fluids crystalloid, complications none, patient tolerated the procedure well and was returned to the recovery room in satisfactory condition.
--- NOTE | 2017-05-13 12:59 | PN- General Surgery ---
Surgical Brief Attending Note Brief Attending Note: Postop day 2 was sore tolerating diet vital signs stable afebrile, abdomen soft no hematomas by the Band-Aids white blood cell count and LFTs slightly down but overall still elevated discussed with medical team, we'll probably discharge home later today and if she feels worse she is to call us and we will check labs to make sure there is no retained stones or recurrent pancreatitis.
== END 2017-05-13 12:35 | DRG 417 ==
LOC: ERH 21:33 → ERHI 05-09 01:28 → 2NA 05-09 01:28 → ENRESERV 05-09 03:02 → 2NA 05-09 03:57 → ENTRNSPT 05-11 21:14 → CMPTRNSPT 05-11 21:55 → 2NA 05-12 09:04 → ENPENDDIS 05-13 10:59 → 2NA 05-13 12:35
PROVIDERS: Physician Assistant; Physician Assistant Surgical; Student in an Organized Health Care Education/Training Program; ADMIT Internal Medicine
PROC: 0FC98ZZ Extirpation of Matter from Common Bile Duct, Via Natural or Artificial Opening Endoscopic (ICD-10-PCS; 2017-05-10)
PROC: BF10YZZ Fluoroscopy of Bile Ducts using Other Contrast (ICD-10-PCS; 2017-05-10)
PROC: 0FT44ZZ Resection of Gallbladder, Percutaneous Endoscopic Approach (ICD-10-PCS; principal; 2017-05-11)
DX: K80.70 Calculus of gallbladder and bile duct without cholecystitis without obstruction (principal); K85.10 Biliary acute pancreatitis without necrosis or infection; K76.0 Fatty (change of) liver, not elsewhere classified; J95.89 Other postprocedural complications and disorders of respiratory system, not elsewhere classified; J98.11 Atelectasis; Y83.8 Other surgical procedures as the cause of abnormal reaction of the patient, or of later complication, without mention of misadventure at the time of the procedure; Y92.239 Unspecified place in hospital as the place of occurrence of the external cause; F32.9 Major depressive disorder, single episode, unspecified; K29.70 Gastritis, unspecified, without bleeding; L29.9 Pruritus, unspecified; M54.5 Low back pain
CPT/HCPCS: 2NASP; 36415; 74177; 81001; 81025; 82436; 96365; 96375; C9399; J0131; J0690; J1650; J1885; J2405; J7042; J7120; Q9967